=== PATIENT | male | born 1945 | race Caucasian/White ===

== ENCOUNTER 2018-10-16 20:32 | Observation (INO) | payer MEDICARE ==
[2018-10-16 21:08] LABS: #Basophils 0.1 thou/uL (0.0-0.2); #Eosinphils 0.2 thou/uL (0.0-0.7); #Lymphocytes 2.2 thou/uL (1.20-3.40); #Monocytes 0.6 thou/uL (0.11-0.59); #Neutrophils 7.6 thou/uL (1.40-6.50); %Basophils 0.6 % (0.0-1.0); %Eosinophils 1.6 % (0.0-10.0); %Lymphocytes 20.6 % (21.0-51.0); %Monocytes 5.7 % (0.0-10.0); %Neutrophils 71.5 % (42.0-75.0); Hemoglobin 17.4 g/dL (14.0-18.0); Mean Corpuscular Hemoglobin 30.8 pg (27.0-31.0); Mean Corpuscular Volume 93.4 fL (78.0-98.0); Mean Platelet Volume 8.9 fL (7.4-10.4); Platelet Count 201 thou/uL (130-400); RBC Distribution Width 13.5 % (11.5-14.5); Red Blood Cell (RBC) Count 5.65 mill/uL (4.70-6.10); White Blood Cell (WBC) Count 10.7 thou/uL (4.8-10.8)
--- NOTE | 2018-10-16 21:08 | RAD ---
PORTABLE CHEST ONE VIEW: 10/16/18 at 8:59 p.m. HISTORY: Generalized weakness. FINDINGS: Comparison made with exam of 01/31/17. There is elevation of the right hemidiaphragm. The heart size is normal. No focal areas of consolidation, pneumothoraces or pleural effusions are seen. IMPRESSION: No radiographic evidence of acute cardiopulmonary process. POS: [facility]
--- NOTE | 2018-10-16 21:35 | CT ---
CT BRAIN WITHOUT CONTRAST: 10/16/18 HISTORY: Recurrent falls with weakness and dizziness. FINDINGS: There are changes of cortical atrophy and chronic small vessel ischemic disease. The ventricular size is appropriate and the basilar cisterns patent. No evidence of acute infarct, hemorrhage, midline sh ift or abnormal extra-axial fluid collections are seen. The bony calvarium is intact. The visualized paranasal sinuses and mastoid air cells are well aerated. IMPRESSION: No CT evidence of acute intracranial process. POS: [facility]
[2018-10-16 21:50] LABS: ALT (SGPT) 15 U/L (8-55); AST (SGOT) 36 U/L (5-34); Albumin 4.4 g/dL (3.4-4.8); Alkaline Phosphatase 99 U/L (40-150); Anion Gap 20 mmol/L (10-20); BUN (Urea Nitrogen) 14 mg/dL (8.4-25.7); Bilirubin, Total 1.1 mg/dL (0.2-1.2); CK (CPK) 375 U/L (30-200); Calc. Creatinine Clearance 0 mL/min (70-130); Calcium 9.2 mg/dL (7.8-10.44); Carbon Dioxide 20 mmol/L (23-31); Chloride 100 mmol/L (98-107); Estimated GFR-MDRD 48; Globulin 4.2 g/dL (2.4-3.5); Glucose 107 mg/dL (83-110); Lipase 11 U/L (8-78); Potassium 5.8 mmol/L (3.5-5.1); Protein, Total 8.6 g/dL (5.8-8.1); Sodium 134 mmol/L (136-145)
[2018-10-16 23:53] LABS: Bilirubin Negative (Negative); Blood, Urine Negative (Negative); Clarity CLEAR (Clear); Glucose, Urine (Dipstick) Negative (Negative); Leukocyte Negative (Negative); Nitrite Negative (Negative); Protein, Urine (Dipstick) Negative (Neg-Trace); Specific Gravity, Urine 1.011 (1.002-1.036); Urobilinogen 0.2 mg/dL (0.2-1.0); pH, Urine 6.5 (5.0-9.0)
[2018-10-17] MEDS ORDERED: Acetaminophen 325 MG TAB PO PRN (02:28)
[2018-10-17 02:39] VITALS: BMI 27.1
[2018-10-17] MEDS: Sodium Chloride 0.9% 1,000 ML IV SCH ×2 (06:32→21:00)
[2018-10-17 07:49] LABS: #Eosinphils 0.1 thou/uL (0.0-0.7); #Lymphocytes 2.4 thou/uL (1.20-3.40); #Monocytes 0.5 thou/uL (0.11-0.59); #Neutrophils 5.4 thou/uL (1.40-6.50); %Basophils 0.5 % (0.0-1.0); %Eosinophils 1.7 % (0.0-10.0); %Monocytes 6.3 % (0.0-10.0); %Neutrophils 63.6 % (42.0-75.0); Hemoglobin 15.6 g/dL (14.0-18.0); Mean Corpuscular HGB CONC 32.6 g/dL (32.0-36.0); Mean Corpuscular Hemoglobin 30.2 pg (27.0-31.0); Mean Corpuscular Volume 92.5 fL (78.0-98.0); Mean Platelet Volume 8.1 fL (7.4-10.4); Platelet Count 205 thou/uL (130-400); RBC Distribution Width 13.3 % (11.5-14.5); Red Blood Cell (RBC) Count 5.15 mill/uL (4.70-6.10); White Blood Cell (WBC) Count 8.4 thou/uL (4.8-10.8)
[2018-10-17 08:10] LABS: Anion Gap 17 mmol/L (10-20); BUN (Urea Nitrogen) 12 mg/dL (8.4-25.7); Calc. Creatinine Clearance 68 mL/min (70-130); Calcium 8.5 mg/dL (7.8-10.44); Carbon Dioxide 21 mmol/L (23-31); Chloride 103 mmol/L (98-107); Estimated GFR-MDRD 58; Glucose 101 mg/dL (83-110); Potassium 4.1 mmol/L (3.5-5.1); Sodium 137 mmol/L (136-145)
--- NOTE | 2018-10-17 09:20 | HP ---
CHIEF COMPLAINT: Falls. HISTORY OF PRESENT ILLNESS: The patient is a 73-year-old male who states that he has history of some degenerative disease of his spine. The patient was also admitted here 2 years ago with episodes of falling. He also had some slight altered mental status at that time. At that time, he was thought to be suffering from urinary tract infection and some dehydration. His creatinine was elevated, that improved with hydration and the patient was discharged home. This time, the patient states he was in his usual state of health. Says he has been feeling a little bit "shaky on his feet" for several months. He reports that 3-4 months ago, he fell twice while trying to carry groceries and from the car. Both times, he bumped his head. On this occasion, the patient was at home by himself as his had gone to a conference in [place]. He reported he had been feeling constipated for several days and took some milk of magnesia the night before he got up on the morning of the October 16 and initially felt okay, but became weak and tried to get up to go to the bathroom and fell and tried to pull himself up, had some difficulties, I believes he fell again. He was incontinent in his clothes and ultimately was able to call his . She suggested an ambulance and he resisted, but apparently she called one anyway and when showed up and brought him to the hospital. The patient does not believe that he injured his head with his falls, although he is very sketchy on the details of the time around the falls. The patient does take Ambien and doxepin at night. He reports that without them, he is completely unable to sleep and he has been on these medications for a very long time. He reports that if he tries to take other medicines, he has nightmares. The patient is retired from working on railroads and he reports that he has nightmares about train wrecks all night long on other medications. He reports this is true with regular Ambien and he requires a CR in order to avoid that. I also talked to the patient's with his permission. She is also very concerned about his medications. She states that she believes that they have been causing problems for a long time including his admission 2 years ago. She reports that once the medications have a chance to wear off in the mornings and he becomes a different person for the rest of the day. She also reports that he has what appear on my estimation to the patient is generally very psychologically dependent on these medications. The patient specifically denies any numbness or weakness in his lower extremities. He does report that he may have some mild issues with recall, but denies any other cognitive issues. PAST MEDICAL HISTORY: Chronic kidney disease. The patient is unaware of the stage, but it appears to be stage III. He has severe degenerative disk disease of his lower back and apparently of the C-spine as well. He reports the last time he had imaging was in 1997, but was told at that time that it was too diffuse and that there was nothing that could be done about it. He denies having any pain in his legs, but states he has a "tired feeling" in his legs, which seems to be better in the mornings and progresses through the day. He also has a history of hypertension, hyperlipidemia, and chronic constipation. He has had endoscopy x3. PAST SURGICAL HISTORY: Radial keratotomy with some followup excimer laser procedure, which he said was not specifically LASIK. FAMILY HISTORY: Mother of breast cancer. Father with Alzheimer's. SOCIAL HISTORY: The patient does not smoke, drink, or do drugs. He is . He is full code, but only desires two rounds of ACLS protocol and then cessation. He reports his would be his surrogate decision maker. REVIEW OF SYSTEMS: The patient has some hearing loss, which he believes is work related. Has the above-mentioned chronic constipation and has the chronic issues with his lower back as stated above. All other systems were reviewed and all pertinent positives and negatives noted in the history of present illness. CURRENT MEDICATIONS: Doxepin 300 mg po q hs Atorvastatin 10 mg po q day Doxazosin 1 mg 2 po bid Lopressor 1 po bid Pilocarpine ophthalmic gtts, 1 gtt OU q day ALLERGIES: NKDA PHYSICAL EXAMINATION: VITAL SIGNS: Temperature 98.3, pulse 79, respirations 16, O2 saturation 94% on room air, BP 110/72. GENERAL APPEARANCE: Age-appropriate male, in no distress. Awake, alert, oriented, pleasant, and cooperative. HEENT: PERRL. No OP lesions. Oral mucosa may be slightly dry. NECK: Supple and symmetric. HEART: Regular rate and rhythm without murmurs, gallops, or rubs. LUNGS: Clear bilaterally. ABDOMEN: Soft, nontender, and nondistended. Positive bowel sounds. No masses. No organomegaly. EXTREMITIES: Warm, dry. No edema. SKIN: Reveals several abrasions on the left elbow and right knee. NEUROLOGICAL: The patient appears to be intact. He does not demonstrate any significant tremor and he appears to have 5/5 strength x4. LABORATORY DATA: Labs showed white count 10.7, hemoglobin 17.4, platelets 201. Sodium 134, potassium 5.8, chloride 100, CO2 of 20, BUN 14, creatinine 1.45, glucose 107, calcium 9.2, AST is 36, ALT 15, CK 375, troponin less than 0.01, albumin 4.4, lipase 11. TSH 1.54. Urinalysis negative. CT shows mild chronic changes, nothing acute. Chest x-ray is negative. IMPRESSION AND PLAN: 1. Multiple falls. My concern is the patient is having possibly some chronic lower extremity issues due to degenerative disk disease of his lumbar spine. This has not been worked up in 20 years. The patient is convinced that there is nothing to be done with benefit, however, maybe worth reassessing that, but I am also concerned that the patient may be having some effects from the Ambien and doxepin that he is taking at night, I believed to be having some hangover effect, which is why he is having some issues with recall of the events. I discussed this with the patient at length. He is fairly resistant to changing medications. This has been ongoing issue for him over at least a couple of decades and I believe he will need to follow up with his PCP. 2. Altered mental status. The patient has altered memory of the events. Again , I believe this is likely related to medications. I did speak with the patient's at length as well as the patient. It would prefer to have Neurology consult why he is here as it is more likely for him to follow up after the fact. 3. Degenerative disk disease, apparently the lumbar and cervical spine. The patient does not demonstrate any significant weakness on my exam. We will have Physical Therapy evaluate him. We will also have neurology see him. I encouraged the patient to consider repeat imaging as it has been 20 years. Also suspect he will need some peripheral nerve conduction studies to determine if there is significant compromise. 4. Chronic insomnia. Again, the patient's medications are likely contributory to his current admission. Suspect he will need to have some changes, but given his resistance and commitment to his current medications and his history of having issues with other medications, I will defer this to the patient's PCP. 5. Chronic kidney disease, appears to be stage III, stable. 6. Hyperkalemia. The patient received a liter of fluids in the emergency department. He has repeat labs pending. 7. Hypertension. Continue with the metoprolol and doxazosin. We will check orthostatic vital signs just to ensure that he may not be having some orthostasis causing some of his fall issues as well. 8. Hyperlipidemia. Continue with the atorvastatin. Job ID: [id number] MTDD
[2018-10-17] MEDS: Doxazosin Mesylate 1 MG TAB PO SCH ×2 (09:24→20:57)
[2018-10-17] MEDS: Atorvastatin Calcium 10 MG TAB PO SCH (09:24)
[2018-10-17] MEDS: Metoprolol Tartrate 25 MG TAB PO SCH ×2 (09:24→20:56)
--- NOTE | 2018-10-17 10:53 | CON ---
DATE OF CONSULTATION: 10/17/2018 CONSULTING PHYSICIAN: Hospitalist Services. IMPRESSION: 1. Chronic back pain. 2. Mild ataxia of uncertain etiology. PLAN: 1. MRI of lumbar spine. 2. B12, B6, and free T4 levels. 3. PT evaluation. HISTORY OF PRESENT ILLNESS: Mr. Persaud is a 73-year-old man, brought in by ambulance after he took a fall at home and had difficulty getting up. He actually did not want to come to the hospital, but they brought him in any way. He reports that for 25 years, he has had chronic back pain is typically worsens as the day goes on. After sleeping through the night, he is usually pain free in the morning. He denies any radicular pain or claudication. He has not noticed any numbness or tingling in extremities. Over the last few months, he notes that his balance has deteriorated somewhat. He does not report any vertigo or lightheadedness. There is no loss of bowel or bladder control reported prior to admission. He had a CT scan of the brain done in the ER, which showed some small-vessel ischemic changes. His laboratory studies were normal. He has been started on some IV fluids. PAST MEDICAL HISTORY: Hypertension and diabetes. ALLERGIES: NONE REPORTED. SOCIAL HISTORY: No tobacco or alcohol use. FAMILY HISTORY: Noncontributory. MEDICATIONS: Medication list was reviewed. REVIEW OF SYSTEMS: A 10-system review of systems is otherwise unremarkable. PHYSICAL EXAMINATION: GENERAL: He is a well-nourished elderly man, in no acute distress. VITAL SIGNS: Blood pressure 132/91, pulse 80, respirations 19, and temperature 98.5. HEENT: Pupils are equal and reactive. Conjunctivae clear. Oropharynx clear. NECK: Supple. No lymphadenopathy. EXTREMITIES: No cyanosis, clubbing, or edema. NEUROLOGIC: He was alert and cooperative. Speech is fluent and clear. Cranial nerves 2 through 12 are intact. Motor strength is 5/5 in all areas. Sensation was intact to light touch and proprioception. Reflexes 1+ and symmetric in the limbs. He could stand independently. He could raise up on his tip toes. He was mildly unstable. SUMMARY: Elderly man with chronic back pain and complaints of some increasing unsteadiness on his feet. There is nothing specific on his exam. He has good strength and intact proprioception. I do not see any evidence of normal-pressure hydrocephalus, can check for vitamin deficiencies, but more than likely he will have to just deal with this through physical therapy and a cane or a walker. Job ID: [id number]
--- NOTE | 2018-10-17 13:02 | MRI ---
MRI LUMBAR SPINE NONCONTRAST: Date: 10/17/18 HISTORY: Urgent MRI lumbar spine performed for new onset weakness and dizziness with progressive falls. FINDINGS: There is a chronic mild superior end plate/anterior wedge compression fracture of T12. This results i n mild retropulsion of bone of the superior aspect seen only on sagittal imaging which does efface th e visualized lower thoracic spinal cord, incompletely evaluated on the basis of this exam. Multilevel end plate degenerative change throughout the lumbar spine is present, resulting in multile yesenia disc osteophyte formation. There is also multilevel bilateral moderate degenerative facet hypertr ophy. Conus medullaris terminates at the L1 level. There is minimal end plate marrow edema compatible with Modic Type I degenerative signal alteration of L2-3 level. T2 signal within the partially imaged pelvis suggests prominent distention of the urinary bladder, al though is incompletely evaluated. L5-S1: No significant central canal stenosis. There is mild left and minimal right neural foraminal narrowing on the basis of facet hypertrophy and disc osteophyte. L4-5: There is moderate central canal stenosis as result of disc osteophyte and bilateral facet hype rtrophy with redundancy of ligamenta flava. Mild to moderate left and minimal right neural foraminal narrowing present. L3-4: There is mild to moderate central canal stenosis as a result of broad based disc osteophyte an d facet hypertrophy. Mild left foraminal narrowing is present. No significant right foraminal narrowi ng. L2-3: There is a right asymmetric disc osteophyte complex which results in moderate stenosis of the right subarticular zone which does crowd the traversing right L3 nerve root. There is mild narrowing of the central canal otherwise demonstrated. Mild bilateral neural foraminal narrowing is present, mo re pronounced on the right. L1-2: Right asymmetric disc osteophyte is present with crowding of the traversing right L2 nerve kishor t within the subarticular zone. Mild left and minimal right neural foraminal narrowing present. T12-L1: There is mild effacement of the right thecal sac due to disc osteophyte. No high grade ijeoma inal narrowing. Within the imaged retroperitoneum, there is a small T2 hyperintensity of the anteromedial left kidney suggestive of a small cyst, difficult to reliably discern due to motion and pulsation artifact. This could be more optimally visualized with a renal ultrasound to exclude internal complexity. IMPRESSION: 1. Incompletely assessed, incidentally imaged, central canal compromise at the low thoracic spine as discussed above, primarily due to a chronic wedge compression fracture of T12. Consider dedicated th oracic spine MR imaging to further evaluate the degree of cord compromise. 2. Multilevel degenerative change throughout the lumbar spine as outlined above. 3. Suggestion of prominent urinary bladder distention, although minimally visualized on the basis of this exam. Consider urinary bladder ultrasound, as well as clinical assessment, to exclude the possi bility of urinary retention syndrome. 4. Probable renal cyst, although complex internal component cannot be excluded. Dedicated renal ultr asound is therefore warranted. CODE T. POS: [facility]
[2018-10-17] MEDS ORDERED: ALPRAZolam 0.5 MG TAB PO PRN (16:04)
[2018-10-17] MEDS ORDERED: Doxepin HCl 25 MG CAP PO SCH (21:00)
[2018-10-18] MEDS: Atorvastatin Calcium 10 MG TAB PO SCH (09:55)
[2018-10-18] MEDS: Doxazosin Mesylate 1 MG TAB PO SCH (09:55)
[2018-10-18] MEDS: Metoprolol Tartrate 25 MG TAB PO SCH (09:55)
[2018-10-18] MEDS: Sodium Chloride 0.9% 1,000 ML IV SCH (09:58)
--- NOTE | 2018-10-18 11:09 | MRI ---
MRI THORACIC SPINE WITHOUT CONTRAST: Date: 10/18/18 HISTORY: Compression fracture with possible cord compression. COMPARISON: MRI lumbar spine prior day. FINDINGS: No retroperitoneal adenopathy. No marrow infiltrative process. There are multiple hemangiomas in the spine seen at T8 and T9. This is also seen at the level of T10. There is no acute fracture or malalignment. There is wedge compression fracture at T12, chronic, with approximately 30% anterior height loss. There is a large posterior disc osteophyte complex at T11-T1 2, along with ligamentum flavum hypertrophy, narrowing the spinal canal to approximately 6.0 mm, wit h abutment of the ventral cord. There is also asymmetric severe facet arthrosis on the left causing s evere left-sided neural foraminal narrowing. No significant right-sided neural foraminal narrowing. T here is also asymmetric left-sided facet arthropathy at T10-T11, T9-T10, and T8-T9 causing moderate n eural foraminal narrowing at all of these levels. No right-sided neural foraminal narrowing. Spinal c anal is not significantly narrowed at any other level. IMPRESSION: 1. Broad based posterior disc osteophyte complex at T11-T12 worst at the central/left paracentral robbins bforaminal and extraforaminal zone causing spinal canal narrowing to 6.0 mm, as well as severe left-s ided neural foraminal narrowing with abutment of the exiting nerve root. There is also asymmetric lef t-sided facet arthrosis at multiple levels as described, causing multilevel left-sided neural foramin al narrowing. No other levels of spinal canal narrowing are appreciated. 2. Old T12 compression fracture with approximately 20-30% anterior height loss. 3. No acute vertebral body fracture. POS: [facility]
[2018-10-18] MEDS ORDERED: Indomethacin 25 mg Capsule PO SCH ×2 (13:00→21:00)
[2018-10-18 15:48] VITALS: BP 131/82; TEMP 98.1
--- NOTE | 2018-10-19 13:32 | DIS ---
DATE OF ADMISSION: 10/17/2018 DATE OF DISCHARGE: 10/18/2018 DISCHARGE DIAGNOSES: 1. Multiple falls. 2. Altered mental status. 3. Degenerative disease of lumbar spine. 4. Chronic insomnia. 5. Chronic kidney disease stage 3. 6. Hyperkalemia. 7. Hypertension. 8. Hyperlipidemia. 9. T11-T12 spinal canal narrowing at 6 mm. 10. Severe left-sided neural foraminal narrowing at T11-T12. 11. Old T12 compression fracture with 20% to 30% anterior height loss. 12. History of benign prostatic hyperplasia. 13. Acute arthropathy, likely consistent with gout of the right great toe. HISTORY OF PRESENT ILLNESS: The patient is a 73-year-old male who presented to the emergency department. The patient had several falls at home after getting up in the morning. He talked to his , who is out of town. She called an ambulance and brought to the emergency department. The patient was somewhat sketchy on the details regarding the falls and did not have full memory of all of the events. In talking to the patient, the patient was quite concerned about what he described as chronic severe insomnia, which required him to take significant doses of Ambien CR along with doxepin each evening in order for him to sleep adequately. The patient reported that he had tried numerous other medications without success and that he was completely incapable of sleeping without those medications. The only exception being that he had used Xanax in place of the Ambien, which had been successful at one time. The patient reported that many of the medications he tried had caused him significant nightmares. The patient did not have any specific neurologic findings at the time of the exam. He did report significant degenerative disease of his spine. It was felt that the patient might have some underlying neurologic issues related to degenerative changes of the spine, exacerbated by taking significant amounts of sedating medications, having some evidence of a hangover effect. The patient was also noted to have slight hyperkalemia with potassium of 5.8. CK was only at 375, BUN 14, creatinine 1.45. HOSPITAL COURSE: The patient was placed in observation status. He was given some hydration. He was seen in consultation by Neurology who did not find any significant deficits on physical exam. The patient had initially been somewhat resistant to working up his lumbar spine as he was told by his prior physician, who was apparently no longer working in the area that there was nothing that could be done to treat his spine and he was convinced of that and therefore there was no real reason to continue to pursue any evaluation. The patient did accept a lumbar MRI after seeing Dr. Edwards. The lumbar spine did reveal some evidence of spinal narrowing at the T11-T12 area and recommended a dedicated MRI of the thoracic spine. The patient did have multiple level degenerative changes on the MRI as well. Subsequently, a T-spine MRI was ordered, however, could not be obtained until the following day. That night, the patient received low-dose Xanax along with the doxepin, which he tolerated well, slept well. The patient had the followup T-spine MRI the following day, which did reveal some degenerative and osteophytic changes causing some spinal canal narrowing to 6 mm and severe left-sided neural foraminal stenosis as well. The patient was also seen by Physical Therapy, ambulated about 280 feet with a rolling walker. He had mild antalgic gait and was felt to be adequately functional. He did recommend a rolling walker for the patient at home. I had a long discussion with the patient regarding his situation. The patient reported that he was drinking warm water in the mornings, but in the afternoon during nothing but tea and it sounds like the patient was drinking fairly large quantities of tea. We discussed the fact that was likely significantly exacerbating his insomnia problem. Also discussed at length the need for the patient to follow up with his PCP in order to discuss the medications that he is taking as I am concerned he is having some hangover effect from these sedating medications that might be contributing to his falling. Also of note, there was some concern the patient might have some bladder or some urinary retention based on his original MRI. Followup bladder scans with postvoid residual showed some modest evidence of moderate retention, but nothing requiring acute intervention. This was discussed with the patient as well. The patient reported some pain and inflammation at the base of the right great toe on the hospital and the patient reported he had one prior episode similar to that which was diagnosed as gout. PHYSICAL EXAMINATION: VITAL SIGNS: On the day of discharge, temperature 98.1, pulse 76, respirations 14, O2 saturation 95% on room air, and blood pressure 131/82. GENERAL APPEARANCE: Age-appropriate male. He is awake, alert, oriented, pleasant, and cooperative. HEART: Regular rate and rhythm without murmurs. LUNGS: Clear bilaterally. ABDOMEN: Soft, nontender. EXTREMITIES: Warm and dry with some evidence of inflammation at the base of the right great toe. DISPOSITION: The patient is discharged to home. ACTIVITY: As tolerated. DIET: He will be on a heart healthy diet. He will have the rolling walker ordered. DISCHARGE MEDICATIONS: He will be on indomethacin 25 mg b.i.d. Continue with his usual home medications. FOLLOWUP: He is to follow up with a PCP in 1 week. He is also encouraged Dr. Grace in 2 to 3 weeks regarding his spinal stenosis. I did discuss the case with Dr. Grace who is aware of the situation as well. The patient can return to the emergency department should he have any problems prior to followup. Job ID: [id number]
== END 2018-10-18 15:00 | disposition home or self-care (01) ==
LOC: ERS 20:32 → SURG A 10-17 00:11
PROVIDERS: ADMIT Hospitalist; ATTEND Hospitalist
DX: R41.82 Altered mental status, unspecified (principal); S22.089A Unspecified fracture of T11-T12 vertebra, initial encounter for closed fracture; I12.9 Hypertensive chronic kidney disease with stage 1 through stage 4 chronic kidney disease, or unspecified chronic kidney disease; E11.22 Type 2 diabetes mellitus with diabetic chronic kidney disease; N18.9 Chronic kidney disease, unspecified; M50.30 Other cervical disc degeneration, unspecified cervical region; E78.5 Hyperlipidemia, unspecified; E87.5 Hyperkalemia; K59.09 Other constipation; G47.00 Insomnia, unspecified; M51.36 Other intervertebral disc degeneration, lumbar region; Z79.899 Other long term (current) drug therapy; Z98.890 Other specified postprocedural states; W19.XXXA Unspecified fall, initial encounter
CPT/HCPCS: 70450; 71045; 72146; 72148; 80048; 81001; 82550; 82607; 83690; 84207; 84439; 84484; 85025; 87040; 87086; 93005; 94760; 96360; 96361 ×2; 97139; 99285; G0378 ×2; 36415; 51798; 80053; 84443

== ENCOUNTER 2018-11-17 10:31 | Day surgery (SDC) | payer MEDICARE ==
[2018-11-16 08:41] VITALS: BMI 28.5
--- NOTE | 2018-11-17 01:53 | HP ---
HISTORY OF PRESENT ILLNESS: Buddy Persaud is a 73-year-old male, comes for EGD for acid reflux and for a colonoscopy for colon cancer screening. The patient has had longstanding history of acid reflux which is getting increasingly worse. Complains of heartburn and also regurgitation off and on. There is no history of odynophagia or dysphagia. He comes in for EGD because of chronic acid reflux and for a colonoscopy for colon cancer screening. ALLERGIES: 1. ZOLPIDEM. 2. FENOFIBRATE. SOCIAL HISTORY: The patient is a nonsmoker. He does not drink alcohol. MEDICAL ILLNESSES: 1. Chronic acid reflux, worsening lately. 2. Hyperlipidemia. 3. Prostatic hypertrophy. 4. Diabetes. 5. Hypertension. 6. Insomnia. 7. Sleep apnea. 8. Depression. 9. Osteoarthritis. PHYSICAL EXAMINATION: VITAL SIGNS: His weight is 219 pounds, pulse is 74, blood pressure 110/60. HEENT: Conjunctivae clear. CARDIOVASCULAR SYSTEM: First and second heart sounds heard. LUNGS: Clear to auscultation. ABDOMEN: Soft. No organomegaly. No tenderness. No masses. EXTREMITIES: Reveal no edema. ADMITTING DIAGNOSIS: 1. Chronic acid reflux. 2. Colon cancer screening. PLAN: EGD and colonoscopy. Job ID: [id number]
[~2018-11-17 10:31] MED LIST: PROPOFOL 200 MG/20 ML VIAL ONE
--- NOTE | 2018-11-17 15:45 | OP ---
DATE OF PROCEDURE: 11/17/2018 OPERATIVE PROCEDURE: Colonoscopy. PREOPERATIVE DIAGNOSIS: A 73-year-old male undergoing colonoscopy for colon cancer screening. POSTOPERATIVE DIAGNOSIS: Normal colonoscopy. However, the exam was limited because of recent fecal residue intermittently in the colon. All the water was easily irrigated and washed out, the colon could not be completely cleaned out. DESCRIPTION OF PROCEDURE: The patient was placed on his left lateral position and was given sedation by Anesthesia Department. Again, a rectal exam was done. The scope was advanced into the rectum. No lesions felt on rectal exam. A [employer] video colonoscope was introduced into the rectum and advanced all the way into the cecum. The exam was somewhat difficult because of the patient did not clean out and he had fecal residue in the right and sigmoid colon all the way to the cecum. The some area of fecal material was quite thick. They are not really solid, but soft and cannot be completely washed out. There was no gross pathology seen, but however, some area could be not seen very well. The cecum, ascending colon, hepatic flexure, no pathology seen. The transverse colon, splenic flexure, descending colon, sigmoid colon, no pathology seen. Retroflexion of scope in the rectum showed no pathology. DISCHARGE PLAN: This is a 73-year-old male came for a colonoscopy for colon cancer screening. Unfortunately, the exam was limited because of retained stool. There was no gross pathology seen. DISCHARGE RECOMMENDATIONS: 1. The please advised to call me if he develops abdominal pain, hematochezia. 2. In the absence of any of above symptoms, come back to me in 2 weeks. Job ID: [id number]
== END 2018-11-17 14:35 | disposition home or self-care (01) ==
LOC: SDC 10:31
PROVIDERS: ATTEND Internal Medicine Gastroenterology
PROC: 0DJD8ZZ Inspection of Lower Intestinal Tract, Via Natural or Artificial Opening Endoscopic (ICD-10-PCS; principal; 2018-11-17)
DX: Z12.11 Encounter for screening for malignant neoplasm of colon (principal); K21.9 Gastro-esophageal reflux disease without esophagitis; E78.5 Hyperlipidemia, unspecified; N40.0 Benign prostatic hyperplasia without lower urinary tract symptoms; E11.9 Type 2 diabetes mellitus without complications; I10 Essential (primary) hypertension; G47.00 Insomnia, unspecified; G47.30 Sleep apnea, unspecified; F32.9 Major depressive disorder, single episode, unspecified; M19.90 Unspecified osteoarthritis, unspecified site; Z88.8 Allergy status to other drugs, medicaments and biological substances; Z79.899 Other long term (current) drug therapy
CPT/HCPCS: J2704

== ENCOUNTER 2022-09-03 15:45 | Inpatient (IN) | payer MEDICARE ==
[2022-09-03 16:44] LABS: #Eosinphils 0.1 thou/uL (0.0-0.7); #Lymphocytes 1.4 thou/uL (1.20-3.40); #Monocytes 0.7 thou/uL (0.11-0.59); %Basophils 0.3 % (0.0-1.0); %Eosinophils 0.3 % (0.0-10.0); %Lymphocytes 9.1 % (21.0-51.0); %Monocytes 4.6 % (0.0-10.0); %Neutrophils 85.6 % (42.0-75.0); Hemoglobin 15.8 g/dL (14.0-18.0); Mean Corpuscular HGB CONC 33.9 g/dL (32.0-36.0); Mean Corpuscular Hemoglobin 31.8 pg (27.0-31.0); Mean Corpuscular Volume 93.7 fl (78.0-98.0); Mean Platelet Volume 8.1 fL (7.4-10.4); Platelet Count 264 10x3/uL (130-400); Red Blood Cell (RBC) Count 4.98 mill/uL (4.70-6.10); White Blood Cell (WBC) Count 15.2 10x3/uL (4.8-10.8)
[2022-09-03 16:56] LABS: ALT (SGPT) 14 U/L (8-55); AST (SGOT) 32 U/L (5-34); Albumin 4.1 g/dL (3.4-4.8); Alkaline Phosphatase 95 U/L (40-110); Anion Gap 15 mmol/L (10-20); BUN (Urea Nitrogen) 20 mg/dL (8.4-25.7); Bilirubin, Total 1.6 mg/dL (0.2-1.2); CK (CPK) 535 U/L (30-200); Calc. Creatinine Clearance 0 mL/min (70-130); Carbon Dioxide 22 mmol/L (23-31); Chloride 101 mmol/L (98-107); Estimated GFR 35; Globulin 3.8 g/dL (2.4-3.5); Glucose 141 mg/dL (83-110); Lipase 14 U/L (8-78); Potassium 5.1 mmol/L (3.5-5.1); Protein, Total 7.9 g/dL (5.8-8.1); Sodium 133 mmol/L (136-145)
[2022-09-03 16:57] LABS: INR-International Normal Ratio 1.1; Prothrombin Time 14.1 sec (12.0-14.7)
[2022-09-03 16:58] LABS: PTT 36.5 sec (22.9-36.1)
[2022-09-03] MEDS ORDERED: Morphine 4 MG/ML VIAL ONE (17:48)
[2022-09-03] MEDS ORDERED: Ondansetron PF 4 MG/2 ML Vial ONE (17:48)
[2022-09-03] MEDS ORDERED: Cefepime 2 GM VIAL ONE (17:48)
[2022-09-03] MEDS ORDERED: Vancomycin 1 GM/200 ML (FROZEN) BAG ONE (19:48)
[2022-09-03 20:05] LABS: Bacteria/HPF 1+ HPF (None Seen); Bilirubin Negative (Negative); Blood, Urine Trace (Negative); Clarity Turbid (Clear); Glucose, Urine (Dipstick) 30 mg/dL (Negative); Ketone, Urine 10 mg/dL (Negative); Leukocyte 500 Leu/uL (Negative); Nitrite Negative (Negative); Protein, Urine (Dipstick) 10 mg/dL (Neg-Trace); Specific Gravity, Urine 1.018 (1.002-1.036); Squamous Epithelial 0-3 HPF (0-3); Urobilinogen Normal mg/dL (Less than 2); WBC/HPF Greater than 50 HPF (0-3); pH, Urine 6.5 (5.0-9.0)
[2022-09-03 20:31] LABS: Troponin I 0.015 ng/mL (< 0.028)
[2022-09-03] MEDS ORDERED: Acetaminophen 650 MG Suppository PR PRN (20:49)
[2022-09-03 22:56] LABS: Troponin I 0.011 ng/mL (< 0.028)
[2022-09-04 06:40] LABS: #Eosinphils 0.1 thou/uL (0.0-0.7); #Lymphocytes 2.1 thou/uL (1.20-3.40); #Monocytes 0.7 thou/uL (0.11-0.59); #Neutrophils 10.7 thou/uL (1.40-6.50); %Basophils 0.2 % (0.0-1.0); %Eosinophils 0.9 % (0.0-10.0); %Lymphocytes 15.4 % (21.0-51.0); %Monocytes 5.2 % (0.0-10.0); %Neutrophils 78.2 % (42.0-75.0); Hemoglobin 14.9 g/dL (14.0-18.0); Mean Corpuscular HGB CONC 34.1 g/dL (32.0-36.0); Mean Corpuscular Hemoglobin 32.6 pg (27.0-31.0); Mean Corpuscular Volume 95.5 fl (78.0-98.0); Platelet Count 249 10x3/uL (130-400); RBC Distribution Width 13.2 % (11.5-14.5); Red Blood Cell (RBC) Count 4.58 mill/uL (4.70-6.10); White Blood Cell (WBC) Count 13.7 10x3/uL (4.8-10.8)
[2022-09-04 06:58] LABS: Anion Gap 14 mmol/L (10-20); BUN (Urea Nitrogen) 21 mg/dL (8.4-25.7); Calc. Creatinine Clearance 35 mL/min (70-130); Calcium 8.6 mg/dL (7.8-10.44); Carbon Dioxide 20 mmol/L (23-31); Chloride 103 mmol/L (98-107); Estimated GFR 35; Glucose 129 mg/dL (83-110); Potassium 4.4 mmol/L (3.5-5.1); Sodium 133 mmol/L (136-145)
[2022-09-04] MEDS ORDERED: CEFAZOLIN 2 GM in Sodium Chloride 0.9% 100 ML IVPB SCH (07:30)
[2022-09-04] MEDS ORDERED: Fentanyl 250 MCG/5 ML VIAL ONE (11:23)
[2022-09-04] MEDS ORDERED: Famotidine/PF 20 mg/2ml Vial ONE (11:23)
[2022-09-04] MEDS ORDERED: EPINEPHrine 1 MG/ML AMP ONE (11:35)
[2022-09-04] MEDS ORDERED: Lidocaine 1% (PF) 30 ML VIAL ONE (11:35)
[2022-09-04] MEDS ORDERED: Sodium Chloride 0.9% 100 ML ONE (11:47)
[2022-09-04] MEDS ORDERED: CEFAZOLIN 2 GM VIAL ONE (11:47)
[2022-09-04] MEDS ORDERED: Ondansetron PF 4 MG/2 ML Vial ONE (12:08)
[2022-09-04] MEDS ORDERED: PHENYLEPHRINE-NS 100 MCG/ML 10 ML SYRINGE ONE (12:08)
[2022-09-04] MEDS ORDERED: Lidocaine 1% PF 5 ML VIAL ONE (12:08)
[2022-09-04] MEDS ORDERED: PROPOFOL 200 MG/20 ML VIAL ONE (12:08)
[2022-09-04] MEDS ORDERED: Rocuronium Bromide 10 MG/ML (10ML VIAL) ONE (12:08)
[2022-09-04] MEDS ORDERED: SUGAMMADEX SODIUM 200 MG/2 ML VIAL ONE (13:05)
[2022-09-04] MEDS ORDERED: Ondansetron PF 4 MG/2 ML Vial IVP PRN (13:31)
[2022-09-04] MEDS ORDERED: Acetaminophen/Codeine 30-300mg Tablet PO PRN (13:31)
[2022-09-04] MEDS ORDERED: Promethazine HCl 25 MG/ML VIAL IVPB PRN (13:50)
[2022-09-04] MEDS ORDERED: HYDROmorphone 2 MG/ML VIAL SLOW IVP PRN (13:50)
[2022-09-04] MEDS ORDERED: Labetalol HCl 100 MG/20 ML VIAL SLOW IVP PRN (16:26)
[2022-09-04] MEDS ORDERED: hydrALAZINE 20 MG/ML VIAL SLOW IVP PRN (16:26)
[2022-09-04] MEDS: Sodium Chloride 0.9% 1,000 ML IV SCH (16:51)
[2022-09-04] MEDS ORDERED: cefTRIAXone\\ROCEPHIN 1 GM in Sodium Chloride 0.9% 100 ML IVPB SCH (18:00)
[2022-09-04] MEDS: CEFAZOLIN 2 GM in Sodium Chloride 0.9% 100 ML IVPB SCH (20:32)
[2022-09-04] MEDS: Doxazosin Mesylate 1 MG TAB PO SCH (20:34)
[2022-09-04] MEDS: Atorvastatin Calcium 10 MG TAB PO SCH (20:44)
[2022-09-05] MEDS: Acetaminophen 325 MG TAB PO PRN ×2 (03:42→09:58)
[2022-09-05 04:02] LABS: #Basophils 0.1 thou/uL (0.0-0.2); #Eosinphils 0.2 thou/uL (0.0-0.7); #Lymphocytes 2.3 thou/uL (1.20-3.40); #Monocytes 0.7 thou/uL (0.11-0.59); #Neutrophils 8.2 thou/uL (1.40-6.50); %Basophils 0.6 % (0.0-1.0); %Eosinophils 1.6 % (0.0-10.0); %Lymphocytes 20.2 % (21.0-51.0); %Monocytes 6.5 % (0.0-10.0); %Neutrophils 71.1 % (42.0-75.0); Hemoglobin 14.7 g/dL (14.0-18.0); Mean Corpuscular Volume 94.3 fl (78.0-98.0); Mean Platelet Volume 8.3 fL (7.4-10.4); Platelet Count 232 10x3/uL (130-400); RBC Distribution Width 13.3 % (11.5-14.5); Red Blood Cell (RBC) Count 4.59 mill/uL (4.70-6.10); White Blood Cell (WBC) Count 11.5 10x3/uL (4.8-10.8)
[2022-09-05 04:23] LABS: Anion Gap 13 mmol/L (10-20); BUN (Urea Nitrogen) 17 mg/dL (8.4-25.7); Calc. Creatinine Clearance 39 mL/min (70-130); Calcium 8.7 mg/dL (7.8-10.44); Carbon Dioxide 22 mmol/L (23-31); Chloride 105 mmol/L (98-107); Estimated GFR 40; Glucose 163 mg/dL (83-110); Potassium 4.1 mmol/L (3.5-5.1); Sodium 136 mmol/L (136-145)
[2022-09-05] MEDS: CEFAZOLIN 2 GM in Sodium Chloride 0.9% 100 ML IVPB SCH ×3 (04:40→20:20)
[2022-09-05] MEDS: Sodium Chloride 0.9% 1,000 ML IV SCH ×2 (04:40→13:01)
[2022-09-05] MEDS ORDERED: Polyethylene Glycol 3350 17 GM Packet PO PRN (09:54)
[2022-09-05] MEDS: Doxazosin Mesylate 1 MG TAB PO SCH ×2 (09:58→20:37)
[2022-09-05] MEDS ORDERED: Magnesium Citrate 300 ML BOT PO PRN (12:46)
[2022-09-05] MEDS ORDERED: Milk Of Magnesia 30 ML UDCUP PO PRN (18:02)
[2022-09-05] MEDS: Atorvastatin Calcium 10 MG TAB PO SCH (20:26)
[2022-09-05] MEDS: Famotidine 20 MG TAB PO SCH (20:51)
[2022-09-05] MEDS ORDERED: Senokot S 8.6-50 MG TAB PO SCH (21:00)
[2022-09-06] MEDS: Sodium Chloride 0.9% 1,000 ML IV SCH ×2 (02:15→15:30)
[2022-09-06] MEDS: CEFAZOLIN 2 GM in Sodium Chloride 0.9% 100 ML IVPB SCH ×2 (03:30→12:37)
[2022-09-06 04:08] LABS: #Basophils 0.1 thou/uL (0.0-0.2); #Eosinphils 0.1 thou/uL (0.0-0.7); #Lymphocytes 2.2 thou/uL (1.20-3.40); #Monocytes 0.8 thou/uL (0.11-0.59); #Neutrophils 9.9 thou/uL (1.40-6.50); %Basophils 0.4 % (0.0-1.0); %Eosinophils 0.8 % (0.0-10.0); %Lymphocytes 17.2 % (21.0-51.0); %Monocytes 5.9 % (0.0-10.0); %Neutrophils 75.8 % (42.0-75.0); Mean Corpuscular HGB CONC 33.4 g/dL (32.0-36.0); Mean Corpuscular Hemoglobin 31.5 pg (27.0-31.0); Mean Corpuscular Volume 94.5 fl (78.0-98.0); Mean Platelet Volume 8.5 fL (7.4-10.4); Platelet Count 212 10x3/uL (130-400); RBC Distribution Width 13.1 % (11.5-14.5); Red Blood Cell (RBC) Count 4.43 mill/uL (4.70-6.10)
[2022-09-06 04:25] LABS: Anion Gap 12 mmol/L (10-20); BUN (Urea Nitrogen) 21 mg/dL (8.4-25.7); Calc. Creatinine Clearance 35 mL/min (70-130); Calcium 8.5 mg/dL (7.8-10.44); Carbon Dioxide 23 mmol/L (23-31); Chloride 103 mmol/L (98-107); Estimated GFR 39; Glucose 210 mg/dL (83-110); Potassium 4.2 mmol/L (3.5-5.1); Sodium 134 mmol/L (136-145)
[2022-09-06 04:32] VITALS: BMI 22.8
[2022-09-06] MEDS ORDERED: Dextrose 50% Abboject 50 ML SYRINGE SLOW IVP PRN (06:19)
[2022-09-06] MEDS ORDERED: Dextrose 5% in Water 1,000 ML IV PRN (06:19)
[2022-09-06] MEDS: Famotidine 20 MG TAB PO SCH (09:49)
[2022-09-06] MEDS: Doxazosin Mesylate 1 MG TAB PO SCH ×3 (09:49→22:17)
[2022-09-06] MEDS: Atorvastatin Calcium 10 MG TAB PO SCH (22:17)
[2022-09-07] MEDS: Sodium Chloride 0.9% 1,000 ML IV SCH (05:29)
[2022-09-07 06:26] LABS: #Eosinphils 0.2 thou/uL (0.0-0.7); #Lymphocytes 3.1 thou/uL (1.20-3.40); #Monocytes 0.8 thou/uL (0.11-0.59); #Neutrophils 6.8 thou/uL (1.40-6.50); %Basophils 0.4 % (0.0-1.0); %Eosinophils 1.5 % (0.0-10.0); %Lymphocytes 28.5 % (21.0-51.0); %Monocytes 7.3 % (0.0-10.0); %Neutrophils 62.3 % (42.0-75.0); Hemoglobin 13.7 g/dL (14.0-18.0); Mean Corpuscular HGB CONC 33.5 g/dL (32.0-36.0); Mean Corpuscular Hemoglobin 31.9 pg (27.0-31.0); Mean Corpuscular Volume 95.3 fl (78.0-98.0); Mean Platelet Volume 8.4 fL (7.4-10.4); Platelet Count 207 10x3/uL (130-400); RBC Distribution Width 13.2 % (11.5-14.5)
[2022-09-07 06:47] LABS: Anion Gap 10 mmol/L (10-20); BUN (Urea Nitrogen) 19 mg/dL (8.4-25.7); Calc. Creatinine Clearance 51 mL/min (70-130); Calcium 8.4 mg/dL (7.8-10.44); Carbon Dioxide 23 mmol/L (23-31); Chloride 109 mmol/L (98-107); Estimated GFR 56; Glucose 147 mg/dL (83-110); Potassium 4.1 mmol/L (3.5-5.1); Sodium 138 mmol/L (136-145)
[2022-09-07] MEDS: Metamucil PACK PO SCH (08:40)
[2022-09-07] MEDS: Doxazosin Mesylate 1 MG TAB PO SCH ×2 (08:41→20:42)
[2022-09-07] MEDS: HumaLOG 300 UNITS/3 ML VIAL SC PRN (12:25)
[2022-09-07] MEDS: Ondansetron ODT 4 MG TAB PO PRN (20:42)
[2022-09-07] MEDS: Atorvastatin Calcium 10 MG TAB PO SCH (20:42)
[2022-09-07] MEDS: Melatonin 3 MG TAB PO PRN (20:42)
[2022-09-08] MEDS: Doxazosin Mesylate 1 MG TAB PO SCH ×2 (09:49→22:07)
[2022-09-08] MEDS: Metamucil PACK PO SCH (09:49)
[2022-09-08] MEDS: Melatonin 3 MG TAB PO PRN (22:06)
[2022-09-08] MEDS: Atorvastatin Calcium 10 MG TAB PO SCH (22:06)
[2022-09-09 06:04] LABS: #Basophils 0.1 thou/uL (0.0-0.2); #Eosinphils 0.2 thou/uL (0.0-0.7); #Lymphocytes 2.6 thou/uL (1.20-3.40); #Monocytes 0.7 thou/uL (0.11-0.59); %Basophils 0.5 % (0.0-1.0); %Eosinophils 2.1 % (0.0-10.0); %Lymphocytes 24.3 % (21.0-51.0); %Monocytes 6.9 % (0.0-10.0); %Neutrophils 66.2 % (42.0-75.0); Hemoglobin 13.8 g/dL (14.0-18.0); Mean Corpuscular HGB CONC 32.9 g/dL (32.0-36.0); Mean Corpuscular Hemoglobin 31.5 pg (27.0-31.0); Mean Corpuscular Volume 95.6 fl (78.0-98.0); Mean Platelet Volume 8.3 fL (7.4-10.4); Platelet Count 238 10x3/uL (130-400); RBC Distribution Width 13.1 % (11.5-14.5); Red Blood Cell (RBC) Count 4.39 mill/uL (4.70-6.10); White Blood Cell (WBC) Count 10.6 10x3/uL (4.8-10.8)
[2022-09-09 06:25] LABS: Anion Gap 12 mmol/L (10-20); BUN (Urea Nitrogen) 20 mg/dL (8.4-25.7); Calc. Creatinine Clearance 54 mL/min (70-130); Calcium 9.1 mg/dL (7.8-10.44); Carbon Dioxide 24 mmol/L (23-31); Chloride 103 mmol/L (98-107); Estimated GFR 61; Glucose 160 mg/dL (83-110); Potassium 4.1 mmol/L (3.5-5.1); Sodium 135 mmol/L (136-145)
[2022-09-09] MEDS: Doxazosin Mesylate 1 MG TAB PO SCH ×2 (09:53→20:43)
[2022-09-09] MEDS: Metamucil PACK PO SCH (09:53)
[2022-09-09] MEDS: Ondansetron ODT 4 MG TAB PO PRN (09:58)
[2022-09-09] MEDS ORDERED: Milk Of Magnesia 30 ML UDCUP PO PRN (16:45)
[2022-09-09] MEDS ORDERED: Tamsulosin HCl 0.4 MG CAP PO SCH (19:30)
[2022-09-09] MEDS ORDERED: Pilocarpine 1% Ophth Drops 15 ML BOT EA EYE SCH ×2 (19:30→21:00)
[2022-09-09] MEDS: Atorvastatin Calcium 10 MG TAB PO SCH (20:42)
[2022-09-09] MEDS: HumaLOG 300 UNITS/3 ML VIAL SC PRN (20:44)
[2022-09-10] MEDS: Pilocarpine 1% Ophth Drops 15 ML BOT EA EYE SCH ×4 (08:41→20:26)
[2022-09-10] MEDS: Metamucil PACK PO SCH (08:42)
[2022-09-10] MEDS: Tamsulosin HCl 0.4 MG CAP PO SCH (08:42)
[2022-09-10] MEDS: Doxazosin Mesylate 1 MG TAB PO SCH (08:42)
[2022-09-10] MEDS: Atorvastatin Calcium 10 MG TAB PO SCH (20:25)
[2022-09-11 04:57] LABS: #Basophils 0.1 thou/uL (0.0-0.2); #Eosinphils 0.2 thou/uL (0.0-0.7); #Lymphocytes 2.8 thou/uL (1.20-3.40); #Monocytes 0.7 thou/uL (0.11-0.59); #Neutrophils 7.1 thou/uL (1.40-6.50); %Basophils 0.5 % (0.0-1.0); %Eosinophils 1.9 % (0.0-10.0); %Lymphocytes 25.9 % (21.0-51.0); %Monocytes 6.6 % (0.0-10.0); %Neutrophils 65.1 % (42.0-75.0); Hemoglobin 14.1 g/dL (14.0-18.0); Mean Corpuscular Hemoglobin 31.2 pg (27.0-31.0); Mean Corpuscular Volume 94.7 fl (78.0-98.0); Mean Platelet Volume 7.8 fL (7.4-10.4); Platelet Count 258 10x3/uL (130-400); RBC Distribution Width 12.9 % (11.5-14.5); Red Blood Cell (RBC) Count 4.53 mill/uL (4.70-6.10); White Blood Cell (WBC) Count 10.9 10x3/uL (4.8-10.8)
[2022-09-11 05:16] LABS: Anion Gap 12 mmol/L (10-20); BUN (Urea Nitrogen) 23 mg/dL (8.4-25.7); Calc. Creatinine Clearance 44 mL/min (70-130); Calcium 8.8 mg/dL (7.8-10.44); Carbon Dioxide 25 mmol/L (23-31); Chloride 101 mmol/L (98-107); Estimated GFR 47; Glucose 152 mg/dL (83-110); Potassium 4.5 mmol/L (3.5-5.1); Sodium 133 mmol/L (136-145)
[2022-09-11] MEDS ORDERED: Milk Of Magnesia 30 ML UDCUP PO SCH (09:31)
[2022-09-11] MEDS: Pilocarpine 1% Ophth Drops 15 ML BOT EA EYE SCH ×2 (09:42→15:38)
[2022-09-11] MEDS: Metamucil PACK PO SCH (09:44)
[2022-09-11] MEDS: Tamsulosin HCl 0.4 MG CAP PO SCH (09:44)
[2022-09-11] MEDS: HumaLOG 300 UNITS/3 ML VIAL SC PRN (12:27)
[2022-09-11 16:37] VITALS: BP 105/67; TEMP 98.2
== END 2022-09-11 19:16 | disposition home health service (06) | DRG 25 ==
LOC: ERS 15:45 → ERHOLD 18:29 → IMCU/EMU 09-04 00:40 → CCU 09-04 12:32 → SURG A 09-06 16:49
PROVIDERS: ADMIT Emergency Medicine; ATTEND Family Medicine
PROC: 00C43ZZ Extirpation of Matter from Intracranial Subdural Space, Percutaneous Approach (ICD-10-PCS; principal; 2022-09-04)
DX: S06.5X0A Traumatic subdural hemorrhage without loss of consciousness, initial encounter (principal); G93.5 Compression of brain; N17.9 Acute kidney failure, unspecified; N39.0 Urinary tract infection, site not specified; Z20.822 Contact with and (suspected) exposure to COVID-19; K21.9 Gastro-esophageal reflux disease without esophagitis; E78.5 Hyperlipidemia, unspecified; G47.00 Insomnia, unspecified; M19.90 Unspecified osteoarthritis, unspecified site; F32.A Depression, unspecified; N40.0 Benign prostatic hyperplasia without lower urinary tract symptoms; E86.0 Dehydration; G89.29 Other chronic pain; M54.9 Dorsalgia, unspecified; E11.22 Type 2 diabetes mellitus with diabetic chronic kidney disease; I12.9 Hypertensive chronic kidney disease with stage 1 through stage 4 chronic kidney disease, or unspecified chronic kidney disease; N18.9 Chronic kidney disease, unspecified; R29.6 Repeated falls; E11.65 Type 2 diabetes mellitus with hyperglycemia; K59.09 Other constipation; I95.1 Orthostatic hypotension; Z85.46 Personal history of malignant neoplasm of prostate; Z79.899 Other long term (current) drug therapy; Z98.890 Other specified postprocedural states; Z82.0 Family history of epilepsy and other diseases of the nervous system; Z91.81 History of falling
CPT/HCPCS: 36415; 36416; 70450; 71045; 80048; 80053; 81003; 81015; 82550; 83036; 83605; 83690; 84145; 84484; 85025; 85610; 85730; 87040; 87086; 93005; 94760; 96374; 96375; C1713; J0171; J0692; J1815; J2001; J2270; J2405; J2704; J3010; J3370-JW; J3490; J7050; Q0162; S0028; U0003; U0005

== ENCOUNTER 2022-10-03 13:00 | Inpatient (IN) | payer MEDICARE ==
[2022-10-03 14:15] LABS: #Eosinphils 0.3 thou/uL (0.0-0.7); #Lymphocytes 2.5 thou/uL (1.20-3.40); #Monocytes 0.8 thou/uL (0.11-0.59); #Neutrophils 13.9 thou/uL (1.40-6.50); %Basophils 0.2 % (0.0-1.0); %Eosinophils 1.8 % (0.0-10.0); %Lymphocytes 14.4 % (21.0-51.0); %Monocytes 4.6 % (0.0-10.0); Hemoglobin 12.6 g/dL (14.0-18.0); Mean Corpuscular HGB CONC 32.8 g/dL (32.0-36.0); Mean Corpuscular Hemoglobin 30.8 pg (27.0-31.0); Mean Corpuscular Volume 93.9 fl (78.0-98.0); Mean Platelet Volume 7.3 fL (7.4-10.4); Platelet Count 299 10x3/uL (130-400); RBC Distribution Width 13.4 % (11.5-14.5); Red Blood Cell (RBC) Count 4.07 mill/uL (4.70-6.10); White Blood Cell (WBC) Count 17.6 10x3/uL (4.8-10.8)
[2022-10-03 14:45] LABS: Bacteria/HPF 1+ HPF (None Seen); Bilirubin Negative (Negative); Blood, Urine 1+ (Negative); Clarity Clear (Clear); Glucose, Urine (Dipstick) Normal (Negative); Ketone, Urine Negative (Negative); Leukocyte 500 Leu/uL (Negative); Nitrite Negative (Negative); Protein, Urine (Dipstick) 20 mg/dL (Neg-Trace); RBC/HPF 0-3 HPF (0-3); Specific Gravity, Urine 1.018 (1.002-1.036); Squamous Epithelial 0-3 HPF (0-3); Urobilinogen 3 mg/dL (Less than 2); WBC/HPF Greater than 50 HPF (0-3); pH, Urine 6.5 (5.0-9.0)
[2022-10-03 14:47] LABS: ALT (SGPT) 36 U/L (8-55); AST (SGOT) 42 U/L (5-34); Albumin 3.3 g/dL (3.4-4.8); Alkaline Phosphatase 93 U/L (40-110); Anion Gap 13 mmol/L (10-20); BUN (Urea Nitrogen) 22 mg/dL (8.4-25.7); Bilirubin, Total 0.8 mg/dL (0.2-1.2); Calc. Creatinine Clearance 0 mL/min (70-130); Calcium 8.2 mg/dL (7.8-10.44); Carbon Dioxide 26 mmol/L (23-31); Chloride 102 mmol/L (98-107); Estimated GFR 41; Globulin 3.5 g/dL (2.4-3.5); Glucose 159 mg/dL (83-110); Potassium 4.3 mmol/L (3.5-5.1); Protein, Total 6.8 g/dL (5.8-8.1); Sodium 137 mmol/L (136-145)
[2022-10-03] MEDS ORDERED: cefTRIAXone\\ROCEPHIN 2 GM VIAL ONE (14:49)
[2022-10-03 15:11] LABS: SARS-CoV-2 NAA Rapid Test Not Detected (NotDetected)
[2022-10-03] MEDS ORDERED: VANCOMYCIN 2 GRAM/500 ML BAG 2 GM in Premix Bag 1 BAG IVPB SCH (16:00)
[2022-10-03] MEDS ORDERED: Dextrose 50% Abboject 50 ML SYRINGE SLOW IVP PRN (16:31)
[2022-10-03] MEDS ORDERED: Dextrose 5% in Water 1,000 ML IV PRN (16:31)
[2022-10-03] MEDS ORDERED: Acetaminophen 325 MG TAB PO PRN (16:31)
[2022-10-03] MEDS ORDERED: HumaLOG 300 UNITS/3 ML VIAL SC PRN ×2 (16:34)
[2022-10-03] MEDS ORDERED: Acetaminophen 500 MG TAB PO PRN ×2 (16:45→17:04)
[2022-10-03] MEDS: metFORMIN 500 MG TAB PO SCH (18:32)
[2022-10-03] MEDS: Lactated Ringer's 1,000 ML IV SCH (18:57)
[2022-10-03] MEDS: Senokot S 8.6-50 MG TAB PO SCH (20:46)
[2022-10-03] MEDS: Atorvastatin Calcium 40 MG TAB PO SCH (20:46)
[2022-10-03] MEDS: Zolpidem Tartrate 5 MG TAB PO SCH (20:46)
[2022-10-03] MEDS: Polyethylene Glycol 3350 17 GM Packet PO SCH (20:46)
[2022-10-03] MEDS: Doxepin HCl 25 MG CAP PO SCH (21:07)
[2022-10-04] MEDS: Lactated Ringer's 1,000 ML IV SCH (05:17)
[2022-10-04 06:41] LABS: #Eosinphils 0.3 thou/uL (0.0-0.7); #Monocytes 0.7 thou/uL (0.11-0.59); #Neutrophils 8.7 thou/uL (1.40-6.50); %Basophils 0.4 % (0.0-1.0); %Eosinophils 2.2 % (0.0-10.0); %Lymphocytes 17.3 % (21.0-51.0); %Monocytes 5.7 % (0.0-10.0); %Neutrophils 74.5 % (42.0-75.0); Hemoglobin 11.1 g/dL (14.0-18.0); Mean Corpuscular HGB CONC 33.4 g/dL (32.0-36.0); Mean Corpuscular Hemoglobin 31.5 pg (27.0-31.0); Mean Corpuscular Volume 94.2 fl (78.0-98.0); Mean Platelet Volume 7.3 fL (7.4-10.4); Platelet Count 287 10x3/uL (130-400); RBC Distribution Width 13.1 % (11.5-14.5); Red Blood Cell (RBC) Count 3.53 mill/uL (4.70-6.10); White Blood Cell (WBC) Count 11.7 10x3/uL (4.8-10.8)
[2022-10-04 07:01] LABS: Anion Gap 11 mmol/L (10-20); BUN (Urea Nitrogen) 16 mg/dL (8.4-25.7); Calc. Creatinine Clearance 55 mL/min (70-130); Calcium 8.5 mg/dL (7.8-10.44); Carbon Dioxide 26 mmol/L (23-31); Chloride 105 mmol/L (98-107); Estimated GFR 60; Glucose 112 mg/dL (83-110); Potassium 4.1 mmol/L (3.5-5.1); Sodium 138 mmol/L (136-145)
[2022-10-04] MEDS: Polyethylene Glycol 3350 17 GM Packet PO SCH ×2 (08:45→21:54)
[2022-10-04] MEDS: Tamsulosin HCl 0.4 MG CAP PO SCH (08:45)
[2022-10-04] MEDS: metFORMIN 500 MG TAB PO SCH ×2 (08:45→17:28)
[2022-10-04] MEDS: Senokot S 8.6-50 MG TAB PO SCH ×2 (08:45→21:49)
[2022-10-04] MEDS: Pilocarpine 1% Ophth Drops 15 ML BOT EA EYE SCH (11:21)
[2022-10-04] MEDS: cefTRIAXone\\ROCEPHIN 1 GM in Sodium Chloride 0.9% 100 ML IVPB SCH (15:26)
[2022-10-04] MEDS ORDERED: Polyethylene Glycol 3350 17 GM Packet PO SCH (17:09)
[2022-10-04] MEDS: Atorvastatin Calcium 40 MG TAB PO SCH (21:47)
[2022-10-04] MEDS: Zolpidem Tartrate 5 MG TAB PO SCH (21:47)
[2022-10-04] MEDS: Doxepin HCl 25 MG CAP PO SCH (21:49)
[2022-10-05 06:39] LABS: #Eosinphils 0.3 thou/uL (0.0-0.7); #Lymphocytes 2.1 thou/uL (1.20-3.40); #Monocytes 0.7 thou/uL (0.11-0.59); #Neutrophils 5.8 thou/uL (1.40-6.50); %Basophils 0.5 % (0.0-1.0); %Eosinophils 3.1 % (0.0-10.0); %Lymphocytes 23.5 % (21.0-51.0); %Monocytes 7.7 % (0.0-10.0); %Neutrophils 65.1 % (42.0-75.0); Hemoglobin 11.6 g/dL (14.0-18.0); Mean Corpuscular HGB CONC 33.3 g/dL (32.0-36.0); Mean Corpuscular Hemoglobin 31.5 pg (27.0-31.0); Mean Corpuscular Volume 94.7 fl (78.0-98.0); Mean Platelet Volume 7.4 fL (7.4-10.4); Platelet Count 316 10x3/uL (130-400); RBC Distribution Width 13.1 % (11.5-14.5)
[2022-10-05 07:00] LABS: Anion Gap 13 mmol/L (10-20); BUN (Urea Nitrogen) 21 mg/dL (8.4-25.7); Calc. Creatinine Clearance 52 mL/min (70-130); Calcium 8.6 mg/dL (7.8-10.44); Carbon Dioxide 24 mmol/L (23-31); Chloride 104 mmol/L (98-107); Estimated GFR 56; Glucose 146 mg/dL (83-110); Potassium 4.1 mmol/L (3.5-5.1); Sodium 137 mmol/L (136-145)
[2022-10-05] MEDS: metFORMIN 500 MG TAB PO SCH ×2 (09:24→17:02)
[2022-10-05] MEDS: Senokot S 8.6-50 MG TAB PO SCH ×2 (09:25→20:09)
[2022-10-05] MEDS: Pilocarpine 1% Ophth Drops 15 ML BOT EA EYE SCH (09:26)
[2022-10-05] MEDS: Tamsulosin HCl 0.4 MG CAP PO SCH (09:26)
[2022-10-05] MEDS: Polyethylene Glycol 3350 17 GM Packet PO SCH ×2 (09:28→20:05)
[2022-10-05] MEDS: cefTRIAXone\\ROCEPHIN 1 GM in Sodium Chloride 0.9% 100 ML IVPB SCH (14:12)
[2022-10-05] MEDS: Doxepin HCl 25 MG CAP PO SCH (20:04)
[2022-10-05] MEDS: Atorvastatin Calcium 40 MG TAB PO SCH (20:09)
[2022-10-06 07:15] LABS: #Eosinphils 0.4 thou/uL (0.0-0.7); #Lymphocytes 2.1 thou/uL (1.20-3.40); #Monocytes 0.7 thou/uL (0.11-0.59); #Neutrophils 8.7 thou/uL (1.40-6.50); %Basophils 0.3 % (0.0-1.0); %Eosinophils 3.2 % (0.0-10.0); %Lymphocytes 17.4 % (21.0-51.0); %Monocytes 5.6 % (0.0-10.0); %Neutrophils 73.5 % (42.0-75.0); Hemoglobin 12.3 g/dL (14.0-18.0); Mean Corpuscular HGB CONC 33.1 g/dL (32.0-36.0); Mean Corpuscular Volume 93.5 fl (78.0-98.0); Mean Platelet Volume 7.5 fL (7.4-10.4); Platelet Count 345 10x3/uL (130-400); RBC Distribution Width 13.1 % (11.5-14.5); Red Blood Cell (RBC) Count 3.96 mill/uL (4.70-6.10); White Blood Cell (WBC) Count 11.8 10x3/uL (4.8-10.8)
[2022-10-06 07:16] LABS: Anion Gap 14 mmol/L (10-20); BUN (Urea Nitrogen) 19 mg/dL (8.4-25.7); Calc. Creatinine Clearance 57 mL/min (70-130); Calcium 8.9 mg/dL (7.8-10.44); Carbon Dioxide 23 mmol/L (23-31); Chloride 102 mmol/L (98-107); Estimated GFR 62; Glucose 159 mg/dL (83-110); Potassium 4.1 mmol/L (3.5-5.1); Sodium 135 mmol/L (136-145)
[2022-10-06] MEDS: Polyethylene Glycol 3350 17 GM Packet PO SCH ×2 (08:52→21:11)
[2022-10-06] MEDS: Senokot S 8.6-50 MG TAB PO SCH ×2 (08:52→21:11)
[2022-10-06] MEDS: metFORMIN 500 MG TAB PO SCH ×2 (08:52→16:53)
[2022-10-06] MEDS: Tamsulosin HCl 0.4 MG CAP PO SCH (08:52)
[2022-10-06] MEDS: Pilocarpine 1% Ophth Drops 15 ML BOT EA EYE SCH (08:53)
[2022-10-06] MEDS ORDERED: FLU VACC QS2022-23(65YR UP)/PF 240 MCG/0.7 ML SYRINGE IM ONE (09:00)
[2022-10-06] MEDS: cefTRIAXone\\ROCEPHIN 1 GM in Sodium Chloride 0.9% 100 ML IVPB SCH (14:02)
[2022-10-06] MEDS: Atorvastatin Calcium 40 MG TAB PO SCH (21:11)
[2022-10-06] MEDS: Melatonin 3 MG TAB PO SCH (21:12)
[2022-10-06] MEDS ORDERED: hydrOXYzine 25 MG TAB PO SCH (21:45)
[2022-10-07 07:35] LABS: #Basophils 0.1 thou/uL (0.0-0.2); #Eosinphils 0.4 thou/uL (0.0-0.7); #Lymphocytes 2.6 thou/uL (1.20-3.40); #Monocytes 0.7 thou/uL (0.11-0.59); #Neutrophils 8.9 thou/uL (1.40-6.50); %Basophils 0.5 % (0.0-1.0); %Eosinophils 3.1 % (0.0-10.0); %Lymphocytes 20.3 % (21.0-51.0); %Monocytes 5.6 % (0.0-10.0); %Neutrophils 70.5 % (42.0-75.0); Hemoglobin 13.1 g/dL (14.0-18.0); Mean Corpuscular HGB CONC 32.5 g/dL (32.0-36.0); Mean Corpuscular Hemoglobin 30.3 pg (27.0-31.0); Mean Corpuscular Volume 93.2 fl (78.0-98.0); Mean Platelet Volume 7.9 fL (7.4-10.4); Platelet Count 391 10x3/uL (130-400); RBC Distribution Width 13.2 % (11.5-14.5); Red Blood Cell (RBC) Count 4.33 mill/uL (4.70-6.10); White Blood Cell (WBC) Count 12.6 10x3/uL (4.8-10.8)
[2022-10-07 07:52] LABS: Anion Gap 12 mmol/L (10-20); BUN (Urea Nitrogen) 19 mg/dL (8.4-25.7); Calc. Creatinine Clearance 55 mL/min (70-130); Calcium 9.5 mg/dL (7.8-10.44); Carbon Dioxide 24 mmol/L (23-31); Chloride 102 mmol/L (98-107); Estimated GFR 59; Glucose 146 mg/dL (83-110); Potassium 4.2 mmol/L (3.5-5.1); Sodium 134 mmol/L (136-145)
[2022-10-07] MEDS: Polyethylene Glycol 3350 17 GM Packet PO SCH ×2 (07:55→20:49)
[2022-10-07] MEDS: metFORMIN 500 MG TAB PO SCH ×2 (07:55→16:53)
[2022-10-07] MEDS: Tamsulosin HCl 0.4 MG CAP PO SCH (07:55)
[2022-10-07] MEDS: Pilocarpine 1% Ophth Drops 15 ML BOT EA EYE SCH (07:55)
[2022-10-07] MEDS: Senokot S 8.6-50 MG TAB PO SCH ×2 (07:55→20:49)
[2022-10-07] MEDS: cefTRIAXone\\ROCEPHIN 1 GM in Sodium Chloride 0.9% 100 ML IVPB SCH (13:26)
[2022-10-07] MEDS: Doxepin HCl 25 MG CAP PO SCH (20:49)
[2022-10-07] MEDS: Atorvastatin Calcium 40 MG TAB PO SCH (20:49)
[2022-10-07] MEDS: Melatonin 3 MG TAB PO SCH (22:00)
[2022-10-08 07:16] LABS: #Basophils 0.1 thou/uL (0.0-0.2); #Eosinphils 0.3 thou/uL (0.0-0.7); #Lymphocytes 2.7 thou/uL (1.20-3.40); #Neutrophils 11.8 thou/uL (1.40-6.50); %Basophils 0.3 % (0.0-1.0); %Eosinophils 1.9 % (0.0-10.0); %Lymphocytes 16.9 % (21.0-51.0); %Neutrophils 74.9 % (42.0-75.0); Hemoglobin 13.3 g/dL (14.0-18.0); Mean Corpuscular Hemoglobin 30.8 pg (27.0-31.0); Mean Corpuscular Volume 93.2 fl (78.0-98.0); Mean Platelet Volume 7.4 fL (7.4-10.4); Platelet Count 413 10x3/uL (130-400); RBC Distribution Width 13.2 % (11.5-14.5); Red Blood Cell (RBC) Count 4.33 mill/uL (4.70-6.10); White Blood Cell (WBC) Count 15.8 10x3/uL (4.8-10.8)
[2022-10-08 07:35] LABS: Anion Gap 16 mmol/L (10-20); BUN (Urea Nitrogen) 26 mg/dL (8.4-25.7); Calc. Creatinine Clearance 49 mL/min (70-130); Calcium 9.3 mg/dL (7.8-10.44); Carbon Dioxide 22 mmol/L (23-31); Chloride 99 mmol/L (98-107); Estimated GFR 51; Glucose 148 mg/dL (83-110); Potassium 4.1 mmol/L (3.5-5.1); Sodium 133 mmol/L (136-145)
[2022-10-08] MEDS: Polyethylene Glycol 3350 17 GM Packet PO SCH ×2 (07:57→20:50)
[2022-10-08] MEDS: Pilocarpine 1% Ophth Drops 15 ML BOT EA EYE SCH (07:57)
[2022-10-08] MEDS: Senokot S 8.6-50 MG TAB PO SCH ×2 (07:57→20:50)
[2022-10-08] MEDS: Tamsulosin HCl 0.4 MG CAP PO SCH (07:57)
[2022-10-08] MEDS: metFORMIN 500 MG TAB PO SCH ×2 (07:57→16:49)
[2022-10-08] MEDS: Melatonin 3 MG TAB PO SCH (20:49)
[2022-10-08] MEDS: Atorvastatin Calcium 40 MG TAB PO SCH (20:49)
[2022-10-08] MEDS: Doxepin HCl 25 MG CAP PO SCH (20:51)
[2022-10-08] MEDS ORDERED: Mineral Oil ENEMA PR SCH (22:00)
[2022-10-09] MEDS ORDERED: Ondansetron PF 4 MG/2 ML Vial IVP PRN (02:55)
[2022-10-09 07:12] LABS: Hemoglobin 14.8 g/dL (14.0-18.0); Mean Corpuscular HGB CONC 33.9 g/dL (32.0-36.0); Mean Corpuscular Hemoglobin 31.3 pg (27.0-31.0); Mean Corpuscular Volume 92.5 fl (78.0-98.0); Mean Platelet Volume 8.2 fL (7.4-10.4); Platelet Count 423 10x3/uL (130-400); RBC Distribution Width 13.3 % (11.5-14.5); Red Blood Cell (RBC) Count 4.72 mill/uL (4.70-6.10); White Blood Cell (WBC) Count 28.3 10x3/uL (4.8-10.8)
[2022-10-09 07:16] LABS: Anion Gap 21 mmol/L (10-20); BUN (Urea Nitrogen) 33 mg/dL (8.4-25.7); Calc. Creatinine Clearance 45 mL/min (70-130); Carbon Dioxide 18 mmol/L (23-31); Chloride 99 mmol/L (98-107); Estimated GFR 47; Glucose 203 mg/dL (83-110); Potassium 4.8 mmol/L (3.5-5.1); Sodium 133 mmol/L (136-145)
[2022-10-09 07:55] LABS: Band 7 % (5-11); Lymphocytes 7 % (21-51); MDiff Complete? YES; Monocytes 4 % (0-10); Neutrophil 82 % (42-75); Platelet Morphology Comment Appears Increased; RBC Morphology Normal
[2022-10-09] MEDS: Tamsulosin HCl 0.4 MG CAP PO SCH (08:33)
[2022-10-09] MEDS: Pilocarpine 1% Ophth Drops 15 ML BOT EA EYE SCH (08:33)
[2022-10-09] MEDS: metFORMIN 500 MG TAB PO SCH ×2 (08:33→17:41)
[2022-10-09] MEDS: Senokot S 8.6-50 MG TAB PO SCH (08:33)
[2022-10-09] MEDS: Polyethylene Glycol 3350 17 GM Packet PO SCH (08:33)
[2022-10-09] MEDS ORDERED: Simethicone Chewable 80 MG TAB PO PRN (10:28)
[2022-10-09] MEDS: Lactated Ringer's 500 ML IV SCH ×2 (12:44→17:20)
[2022-10-09] MEDS ORDERED: Iopamidol-370 76% 500 ML 1 ML ONE (14:48)
[2022-10-09] MEDS ORDERED: Morphine 4 MG/ML VIAL SLOW IVP SCH (15:45)
[2022-10-09] MEDS ORDERED: Lactated Ringer's 1,000 ML IV SCH ×3 (16:30→17:15)
[2022-10-09 16:51] LABS: Hemoglobin 14.7 g/dL (14.0-18.0); Mean Corpuscular HGB CONC 33.4 g/dL (32.0-36.0); Mean Corpuscular Hemoglobin 30.9 pg (27.0-31.0); Mean Corpuscular Volume 92.6 fl (78.0-98.0); Mean Platelet Volume 8.3 fL (7.4-10.4); Platelet Count 441 10x3/uL (130-400); RBC Distribution Width 13.4 % (11.5-14.5); Red Blood Cell (RBC) Count 4.76 mill/uL (4.70-6.10); White Blood Cell (WBC) Count 27.8 10x3/uL (4.8-10.8)
[2022-10-09 17:10] LABS: Lymphocytes 7 % (21-51); MDiff Complete? YES; Monocytes 3 % (0-10); Neutrophil 87 % (42-75); Platelet Morphology Comment Appears Increased; Polychromasia SLIGHT = 2-3 cells (100X) (0-2/hpf); Reactive Lymphocytes 3 % (0-10)
[2022-10-09 17:12] LABS: Lactic Acid 5.6 mmol/L (0.5-2.2)
[2022-10-09 17:14] LABS: ALT (SGPT) 25 U/L (8-55); AST (SGOT) 22 U/L (5-34); Albumin 3.9 g/dL (3.4-4.8); Alkaline Phosphatase 108 U/L (40-110); Anion Gap 20 mmol/L (10-20); BUN (Urea Nitrogen) 38 mg/dL (8.4-25.7); Bilirubin, Total 0.7 mg/dL (0.2-1.2); Calc. Creatinine Clearance 38 mL/min (70-130); Calcium 9.4 mg/dL (7.8-10.44); Carbon Dioxide 16 mmol/L (23-31); Chloride 98 mmol/L (98-107); Estimated GFR 38; Globulin 4.6 g/dL (2.4-3.5); Glucose 247 mg/dL (83-110); Potassium 4.8 mmol/L (3.5-5.1); Protein, Total 8.5 g/dL (5.8-8.1); Sodium 129 mmol/L (136-145)
[2022-10-09] MEDS: Sodium Chloride 0.9% 1,000 ML IV SCH (20:23)
[2022-10-09 20:35] LABS: Lactic Acid 2.4 mmol/L (0.5-2.2)
[2022-10-10] MEDS: Sodium Chloride 0.9% 1,000 ML IV SCH ×4 (00:23→20:43)
[2022-10-10 06:39] LABS: #Basophils 0.1 thou/uL (0.0-0.2); #Eosinphils 0.3 thou/uL (0.0-0.7); #Lymphocytes 2.9 thou/uL (1.20-3.40); #Monocytes 0.9 thou/uL (0.11-0.59); #Neutrophils 9.9 thou/uL (1.40-6.50); %Basophils 0.4 % (0.0-1.0); %Eosinophils 2.3 % (0.0-10.0); %Lymphocytes 20.5 % (21.0-51.0); %Monocytes 6.1 % (0.0-10.0); %Neutrophils 70.6 % (42.0-75.0); Hemoglobin 12.6 g/dL (14.0-18.0); Mean Corpuscular HGB CONC 32.5 g/dL (32.0-36.0); Mean Corpuscular Volume 92.3 fl (78.0-98.0); Mean Platelet Volume 7.8 fL (7.4-10.4); Platelet Count 415 10x3/uL (130-400); RBC Distribution Width 13.4 % (11.5-14.5); Red Blood Cell (RBC) Count 4.21 mill/uL (4.70-6.10)
[2022-10-10 07:00] LABS: ALT (SGPT) 18 U/L (8-55); AST (SGOT) 18 U/L (5-34); Albumin 3.2 g/dL (3.4-4.8); Alkaline Phosphatase 84 U/L (40-110); Anion Gap 13 mmol/L (10-20); BUN (Urea Nitrogen) 29 mg/dL (8.4-25.7); Bilirubin, Total 0.7 mg/dL (0.2-1.2); Calc. Creatinine Clearance 54 mL/min (70-130); Calcium 8.5 mg/dL (7.8-10.44); Carbon Dioxide 24 mmol/L (23-31); Chloride 102 mmol/L (98-107); Estimated GFR 58; Globulin 3.8 g/dL (2.4-3.5); Glucose 151 mg/dL (83-110); Magnesium 1.8 mg/dL (1.6-2.6); Potassium 4.2 mmol/L (3.5-5.1); Sodium 135 mmol/L (136-145)
[2022-10-10] MEDS: Pilocarpine 1% Ophth Drops 15 ML BOT EA EYE SCH (08:48)
[2022-10-10] MEDS: Tamsulosin HCl 0.4 MG CAP PO SCH (08:51)
[2022-10-10] MEDS ORDERED: Pantoprazole 40 MG VIAL IVP SCH (09:00)
[2022-10-10] MEDS ORDERED: Ropivacaine 0.5% HCl/PF (150 MG/30 ML VIAL) ONE (11:15)
[2022-10-10] MEDS ORDERED: Fentanyl 100 MCG/2 ML VIAL ONE (11:15)
[2022-10-10] MEDS ORDERED: Midazolam HCl 2 mg/2 ml Vial ONE (11:15)
[2022-10-10] MEDS ORDERED: PHENYLEPHRINE-NS 100 MCG/ML 10 ML SYRINGE ONE ×2 (13:00→13:37)
[2022-10-10] MEDS ORDERED: Rocuronium Bromide 10 MG/ML (10ML VIAL) ONE (13:00)
[2022-10-10] MEDS ORDERED: Succinylcholine Chloride 100 MG/5 ML SYRINGE FS ONE (13:00)
[2022-10-10] MEDS ORDERED: PROPOFOL 200 MG/20 ML VIAL ONE (13:00)
[2022-10-10] MEDS ORDERED: Lidocaine 1% PF 5 ML VIAL ONE (13:00)
[2022-10-10] MEDS ORDERED: Fentanyl 250 MCG/5 ML VIAL ONE (13:26)
[2022-10-10] MEDS ORDERED: Piperacillin/Tazobactam 3.375 GM VIAL ONE (13:29)
[2022-10-10] MEDS ORDERED: Sodium Chloride 0.9% 100 ML ONE (13:29)
[2022-10-10] MEDS ORDERED: SUGAMMADEX SODIUM 200 MG/2 ML VIAL ONE (14:21)
[2022-10-10] MEDS ORDERED: fentaNYL PF 100 MCG/2 ML SYRINGE ONE (14:54)
[2022-10-10] MEDS ORDERED: Morphine 4 MG/ML VIAL ONE (15:08)
[2022-10-10] MEDS ORDERED: Morphine 2 MG/ML VIAL ONE (15:37)
[2022-10-10] MEDS ORDERED: Non-Formulary Medication 1 EACH PO PRN (15:49)
[2022-10-10] MEDS ORDERED: Ondansetron HCl/PF 4 MG/2 ML Vial IVP PRN (16:00)
[2022-10-10] MEDS ORDERED: Morphine Sulfate 2 MG/ML SYRINGE SLOW IVP PRN (16:00)
[2022-10-10] MEDS ORDERED: Promethazine HCl 25 MG/ML VIAL IM/IV PRN (16:00)
[2022-10-10] MEDS ORDERED: PACU-Morphine 4MG/ML VIAL SLOW IVP PRN (16:00)
[2022-10-10] MEDS: Methylcellulose 500 MG TAB PO SCH (16:20)
[2022-10-10] MEDS ORDERED: Morphine 2 MG/ML VIAL SLOW IVP PRN (16:55)
[2022-10-10] MEDS ORDERED: Acetaminophen 500 MG TAB PO PRN (16:57)
[2022-10-10] MEDS ORDERED: Acetaminophen 500 MG TAB PO SCH (17:00)
[2022-10-10] MEDS: Doxepin HCl 25 MG CAP PO SCH (20:45)
[2022-10-10] MEDS: traMADol HCl 50 MG TAB PO PRN (20:47)
[2022-10-11] MEDS: Morphine 4 MG/ML VIAL SLOW IVP PRN ×3 (00:28→06:13)
[2022-10-11] MEDS ORDERED: Zolpidem Tartrate 5 MG TAB PO PRN (01:35)
[2022-10-11] MEDS: Sodium Chloride 0.9% 1,000 ML IV SCH ×2 (02:22→06:13)
[2022-10-11 06:28] LABS: #Eosinphils 0.2 thou/uL (0.0-0.7); #Lymphocytes 2.5 thou/uL (1.20-3.40); #Monocytes 0.7 thou/uL (0.11-0.59); #Neutrophils 8.1 thou/uL (1.40-6.50); %Basophils 0.3 % (0.0-1.0); %Eosinophils 1.5 % (0.0-10.0); %Lymphocytes 21.5 % (21.0-51.0); %Monocytes 6.1 % (0.0-10.0); %Neutrophils 70.6 % (42.0-75.0); Hemoglobin 13.2 g/dL (14.0-18.0); Mean Corpuscular HGB CONC 32.3 g/dL (32.0-36.0); Mean Corpuscular Hemoglobin 30.7 pg (27.0-31.0); Platelet Count 342 10x3/uL (130-400); RBC Distribution Width 13.5 % (11.5-14.5); Red Blood Cell (RBC) Count 4.31 mill/uL (4.70-6.10); White Blood Cell (WBC) Count 11.5 10x3/uL (4.8-10.8)
[2022-10-11 07:16] LABS: ALT (SGPT) 12 U/L (8-55); AST (SGOT) 16 U/L (5-34); Albumin 3.2 g/dL (3.4-4.8); Alkaline Phosphatase 77 U/L (40-110); Anion Gap 12 mmol/L (10-20); BUN (Urea Nitrogen) 17 mg/dL (8.4-25.7); Bilirubin, Total 0.7 mg/dL (0.2-1.2); Calc. Creatinine Clearance 60 mL/min (70-130); Carbon Dioxide 21 mmol/L (23-31); Chloride 104 mmol/L (98-107); Estimated GFR 65; Globulin 3.2 g/dL (2.4-3.5); Glucose 162 mg/dL (83-110); Magnesium 1.8 mg/dL (1.6-2.6); Potassium 4.2 mmol/L (3.5-5.1); Protein, Total 6.4 g/dL (5.8-8.1); Sodium 133 mmol/L (136-145)
[2022-10-11] MEDS ORDERED: Ipratropium/Albuterol 3 ML NEB NEB PRN (09:58)
[2022-10-11] MEDS: Tamsulosin HCl 0.4 MG CAP PO SCH (10:37)
[2022-10-11] MEDS: Doxepin HCl 25 MG CAP PO SCH ×2 (10:38→21:28)
[2022-10-11] MEDS: Pilocarpine 1% Ophth Drops 15 ML BOT EA EYE SCH (10:38)
[2022-10-11] MEDS ORDERED: Magnesium 2 GM/50 ML(in water) 2 GM in Premix Bag 1 BAG IVPB SCH (11:30)
[2022-10-11] MEDS: Ipratropium/Albuterol 3 ML NEB NEB SCH ×2 (14:07→19:53)
[2022-10-11] MEDS: Methylcellulose 500 MG TAB PO SCH (17:01)
[2022-10-11] MEDS: traMADol HCl 50 MG TAB PO PRN (18:45)
[2022-10-12] MEDS: Morphine 4 MG/ML VIAL SLOW IVP PRN (00:01)
[2022-10-12] MEDS: traMADol HCl 50 MG TAB PO PRN ×2 (03:48→18:09)
[2022-10-12] MEDS ORDERED: Benzonatate 100 MG CAP PO PRN (03:56)
[2022-10-12 06:36] LABS: #Basophils 0.1 thou/uL (0.0-0.2); #Eosinphils 0.2 thou/uL (0.0-0.7); #Lymphocytes 2.3 thou/uL (1.20-3.40); #Monocytes 0.7 thou/uL (0.11-0.59); #Neutrophils 8.6 thou/uL (1.40-6.50); %Basophils 0.4 % (0.0-1.0); %Eosinophils 1.9 % (0.0-10.0); %Lymphocytes 19.5 % (21.0-51.0); %Monocytes 5.8 % (0.0-10.0); %Neutrophils 72.4 % (42.0-75.0); Hemoglobin 12.3 g/dL (14.0-18.0); Mean Corpuscular HGB CONC 33.1 g/dL (32.0-36.0); Mean Corpuscular Hemoglobin 31.1 pg (27.0-31.0); Platelet Count 332 10x3/uL (130-400); RBC Distribution Width 13.4 % (11.5-14.5); Red Blood Cell (RBC) Count 3.95 mill/uL (4.70-6.10); White Blood Cell (WBC) Count 11.9 10x3/uL (4.8-10.8)
[2022-10-12 06:56] LABS: Anion Gap 14 mmol/L (10-20); BUN (Urea Nitrogen) 11 mg/dL (8.4-25.7); Calc. Creatinine Clearance 59 mL/min (70-130); Calcium 8.5 mg/dL (7.8-10.44); Carbon Dioxide 25 mmol/L (23-31); Chloride 100 mmol/L (98-107); Estimated GFR 64; Glucose 140 mg/dL (83-110); Phosphorus 3.9 mg/dL (2.3-4.7); Potassium 4.3 mmol/L (3.5-5.1); Sodium 135 mmol/L (136-145)
[2022-10-12] MEDS: Ipratropium/Albuterol 3 ML NEB NEB SCH ×3 (07:50→19:06)
[2022-10-12] MEDS: Pilocarpine 1% Ophth Drops 15 ML BOT EA EYE SCH (09:33)
[2022-10-12] MEDS: Doxepin HCl 25 MG CAP PO SCH ×2 (09:33→22:04)
[2022-10-12] MEDS: Tamsulosin HCl 0.4 MG CAP PO SCH (09:33)
[2022-10-12] MEDS: Methylcellulose 500 MG TAB PO SCH (15:37)
[2022-10-13] MEDS: traMADol HCl 50 MG TAB PO PRN (05:30)
[2022-10-13 06:00] LABS: #Eosinphils 0.3 thou/uL (0.0-0.7); #Lymphocytes 2.1 thou/uL (1.20-3.40); #Monocytes 0.5 thou/uL (0.11-0.59); #Neutrophils 9.2 thou/uL (1.40-6.50); %Basophils 0.3 % (0.0-1.0); %Eosinophils 2.6 % (0.0-10.0); %Lymphocytes 17.5 % (21.0-51.0); %Neutrophils 75.6 % (42.0-75.0); Hemoglobin 12.9 g/dL (14.0-18.0); Mean Corpuscular HGB CONC 33.3 g/dL (32.0-36.0); Mean Corpuscular Volume 93.1 fl (78.0-98.0); Mean Platelet Volume 8.1 fL (7.4-10.4); Platelet Count 364 10x3/uL (130-400); RBC Distribution Width 13.3 % (11.5-14.5); Red Blood Cell (RBC) Count 4.17 mill/uL (4.70-6.10); White Blood Cell (WBC) Count 12.1 10x3/uL (4.8-10.8)
[2022-10-13 06:32] LABS: Anion Gap 14 mmol/L (10-20); BUN (Urea Nitrogen) 12 mg/dL (8.4-25.7); Calc. Creatinine Clearance 64 mL/min (70-130); Calcium 9.3 mg/dL (7.8-10.44); Carbon Dioxide 26 mmol/L (23-31); Chloride 99 mmol/L (98-107); Estimated GFR 70; Glucose 152 mg/dL (83-110); Magnesium 1.8 mg/dL (1.6-2.6); Phosphorus 3.7 mg/dL (2.3-4.7); Potassium 4.1 mmol/L (3.5-5.1); Sodium 135 mmol/L (136-145)
[2022-10-13 08:14] VITALS: BP 125/76; TEMP 99.1
[2022-10-13] MEDS: Pilocarpine 1% Ophth Drops 15 ML BOT EA EYE SCH (08:45)
[2022-10-13] MEDS: Doxepin HCl 25 MG CAP PO SCH (08:46)
[2022-10-13] MEDS: Tamsulosin HCl 0.4 MG CAP PO SCH (08:46)
[2022-10-13] MEDS: Ipratropium/Albuterol 3 ML NEB NEB SCH (10:43)
[2022-10-13] MEDS: Methylcellulose 500 MG TAB PO SCH (15:03)
== END 2022-10-13 16:18 | DRG 981 ==
LOC: ERS 13:00 → T4-B 15:47 → OBSVTOIN 10-06 15:14
PROVIDERS: ADMIT Student in an Organized Health Care Education/Training Program; ATTEND Student in an Organized Health Care Education/Training Program
PROC: 0D980ZZ Drainage of Small Intestine, Open Approach (ICD-10-PCS; principal; 2022-10-10)
PROC: 3E0M05Z Introduction of Adhesion Barrier into Peritoneal Cavity, Open Approach (ICD-10-PCS; 2022-10-10)
DX: T83.511A Infection and inflammatory reaction due to indwelling urethral catheter, initial encounter (principal); A41.9 Sepsis, unspecified organism; N17.9 Acute kidney failure, unspecified; K56.609 Unspecified intestinal obstruction, unspecified as to partial versus complete obstruction; J98.11 Atelectasis; E87.20 Acidosis, unspecified; I12.9 Hypertensive chronic kidney disease with stage 1 through stage 4 chronic kidney disease, or unspecified chronic kidney disease; N39.0 Urinary tract infection, site not specified; N18.31 Chronic kidney disease, stage 3a; E78.5 Hyperlipidemia, unspecified; K21.9 Gastro-esophageal reflux disease without esophagitis; N40.1 Benign prostatic hyperplasia with lower urinary tract symptoms; R33.8 Other retention of urine; F32.A Depression, unspecified; E11.22 Type 2 diabetes mellitus with diabetic chronic kidney disease; C61 Malignant neoplasm of prostate; R53.81 Other malaise; G47.30 Sleep apnea, unspecified; G47.00 Insomnia, unspecified; M51.36 Other intervertebral disc degeneration, lumbar region; Z20.822 Contact with and (suspected) exposure to COVID-19; E86.0 Dehydration; R53.1 Weakness; M51.24 Other intervertebral disc displacement, thoracic region; K59.09 Other constipation; M48.04 Spinal stenosis, thoracic region; K46.9 Unspecified abdominal hernia without obstruction or gangrene; Z98.890 Other specified postprocedural states; Z79.899 Other long term (current) drug therapy; Z79.84 Long term (current) use of oral hypoglycemic drugs; Z83.3 Family history of diabetes mellitus
CPT/HCPCS: 36415; 36416; 51702; 70450; 71045; 72125; 72128; 72131; 74018; 74019; 74177; 80048; 80053; 81003; 81015; 83605; 83690; 83735; 84100; 84145; 84484; 85025; 87077; 87086; 87186; 87811; 93005; 94640; 96365; 96367; 96374; 96375; 96376; C1776; C9113; G0378; J0696; J1650; J1815; J2250; J2270; J2272; J2543; J2704; J2795; J3010; J3370; J3475; J3490; J7050; J7120; J7620; Q9967

== ENCOUNTER 2023-04-10 00:38 | Inpatient (IN) | payer MEDICARE ==
[2023-04-10 01:27] LABS: Bacteria/HPF 4+ HPF (None Seen); CAUTI Indications for Culture Dysuria,urgency,freq; RBC/HPF 21-50 HPF (0-3); Squamous Epithelial None Seen HPF (0-3); WBC/HPF Greater than 50 HPF (0-3)
[2023-04-10] MEDS ORDERED: cefTRIAXone (ROCEPHIN) 1 GM VIAL ONE (01:28)
[2023-04-10 01:35] LABS: Bilirubin Negative (Negative); Blood, Urine Large (Negative); Glucose, Urine (Dipstick) Negative (Negative); Ketone, Urine Trace mg/dL (Negative); Leukocyte Moderate (Negative); Nitrite Positive (Negative); Protein, Urine (Dipstick) 100 mg/dL (Neg-Trace); Urobilinogen 0.2 mg/dL (Less than 2); pH, Urine 7.5 (5.0-9.0)
[2023-04-10 01:36] LABS: Clarity Turbid (Clear)
[2023-04-10 01:37] LABS: Urine Culture Reflex Yes Yes
[2023-04-10 01:43] LABS: #Basophils 0.1 thou/uL (0.0-0.2); #Eosinphils 0.1 thou/uL (0.0-0.7); #Monocytes 0.6 thou/uL (0.11-0.59); #Neutrophils 8.9 thou/uL (1.40-6.50); %Basophils 0.5 % (0.0-1.0); %Eosinophils 0.5 % (0.0-10.0); %Lymphocytes 12.8 % (21.0-51.0); %Neutrophils 80.8 % (42.0-75.0); Hematocrit 44.3 % (42.0-52.0); Hemoglobin 14.2 g/dL (14.0-18.0); Mean Corpuscular HGB CONC 32.1 g/dL (32.0-36.0); Mean Corpuscular Hemoglobin 28.3 pg (27.0-31.0); Mean Corpuscular Volume 88.4 fl (78.0-98.0); Mean Platelet Volume 10.3 fL (7.4-10.4); Platelet Count 245 10x3/uL (130-400); RBC Distribution Width 16.2 % (11.5-14.5); Red Blood Cell (RBC) Count 5.01 mill/uL (4.70-6.10); White Blood Cell (WBC) Count 11.1 10x3/uL (4.8-10.8)
[2023-04-10 02:05] LABS: ALT (SGPT) 7 U/L (8-55); AST (SGOT) 18 U/L (5-34); Albumin 3.4 g/dL (3.4-4.8); Alkaline Phosphatase 145 U/L (40-110); Anion Gap 15 mmol/L (10-20); BUN (Urea Nitrogen) 16 mg/dL (8.4-25.7); Bilirubin, Total 0.9 mg/dL (0.2-1.2); Calc. Creatinine Clearance 0 mL/min (70-130); Calcium 8.9 mg/dL (7.8-10.44); Carbon Dioxide 18 mmol/L (23-31); Chloride 106 mmol/L (98-107); Estimated GFR 53; Globulin 4.3 g/dL (2.4-3.5); Glucose 213 mg/dL (83-110); Potassium 4.1 mmol/L (3.5-5.1); Protein, Total 7.7 g/dL (5.8-8.1); Sodium 135 mmol/L (136-145)
[2023-04-10] MEDS ORDERED: Vancomycin 1 GM/200 ML (FROZEN) BAG ONE (02:38)
[2023-04-10] MEDS ORDERED: Sodium Chloride 0.9% 1,000 ML IV SCH ×2 (03:00→05:00)
[2023-04-10] MEDS ORDERED: Ondansetron PF 4 MG/2 ML Vial IVP PRN (03:00)
[2023-04-10] MEDS ORDERED: Ondansetron ODT 4 MG TAB SL PRN (03:00)
[2023-04-10] MEDS ORDERED: Acetaminophen 325 MG TAB PO PRN (04:10)
[2023-04-10] MEDS ORDERED: Acetaminophen 650 MG Suppository PR PRN (04:10)
[2023-04-10] MEDS ORDERED: Glucagon 1 MG/ML KIT IM PRN (04:12)
[2023-04-10] MEDS ORDERED: Dextrose 50% Abboject 50 ML SYRINGE SLOW IVP PRN (04:12)
[2023-04-10] MEDS ORDERED: HumaLOG 300 UNITS/3 ML VIAL SC PRN ×2 (04:12)
[2023-04-10] MEDS ORDERED: Dextrose 5% in Water 1,000 ML IV PRN (04:12)
[2023-04-10] MEDS ORDERED: Vancomycin HCl 500 MG in Sodium Chloride 0.9% 100 ML IVPB SCH (05:00)
[2023-04-10] MEDS ORDERED: Cefepime 2 GM in Sodium Chloride 0.9% 100 ML IVPB SCH (09:00)
[2023-04-10] MEDS ORDERED: Famotidine/PF 20 mg/2ml Vial SLOW IVP SCH (09:00)
[2023-04-10] MEDS ORDERED: Vancomycin 1 GM in Premix Bag 1 BAG IVPB SCH (10:00)
[2023-04-10] MEDS ORDERED: Vancomycin 1.5 GRAM/300 ML BAG 1.5 GM in Premix Bag 1 BAG IVPB SCH (14:00)
[2023-04-10] MEDS: Cefepime 1 GM in Sodium Chloride 0.9% 100 ML IVPB SCH (20:19)
[2023-04-10] MEDS ORDERED: Melatonin 3 MG TAB PO PRN (21:11)
[2023-04-11] MEDS: Zolpidem Tartrate 5 MG TAB PO PRN ×2 (01:47→20:51)
[2023-04-11] MEDS ORDERED: Vancomycin 1 GM in Premix Bag 1 BAG IVPB SCH (03:00)
[2023-04-11 07:39] LABS: #Basophils 0.1 thou/uL (0.0-0.2); #Eosinphils 0.2 thou/uL (0.0-0.7); #Monocytes 0.5 thou/uL (0.11-0.59); #Neutrophils 5.5 thou/uL (1.40-6.50); %Basophils 0.7 % (0.0-1.0); %Eosinophils 2.6 % (0.0-10.0); %Monocytes 5.4 % (0.0-10.0); %Neutrophils 65.9 % (42.0-75.0); Hematocrit 46.3 % (42.0-52.0); Hemoglobin 14.5 g/dL (14.0-18.0); Mean Corpuscular HGB CONC 31.3 g/dL (32.0-36.0); Mean Corpuscular Hemoglobin 27.9 pg (27.0-31.0); Mean Corpuscular Volume 89.2 fl (78.0-98.0); Mean Platelet Volume 10.3 fL (7.4-10.4); Platelet Count 267 10x3/uL (130-400); Red Blood Cell (RBC) Count 5.19 mill/uL (4.70-6.10); White Blood Cell (WBC) Count 8.4 10x3/uL (4.8-10.8)
[2023-04-11 07:53] LABS: Hemoglobin A1c 6.5 % (4.0-6.0)
[2023-04-11 08:00] LABS: Anion Gap 12 mmol/L (10-20); BUN (Urea Nitrogen) 13 mg/dL (8.4-25.7); Calc. Creatinine Clearance 38 mL/min (70-130); Calcium 9.1 mg/dL (7.8-10.44); Carbon Dioxide 25 mmol/L (23-31); Chloride 107 mmol/L (98-107); Estimated GFR 46; Glucose 120 mg/dL (83-110); Magnesium 1.9 mg/dL (1.6-2.6); Potassium 4.4 mmol/L (3.5-5.1); Sodium 140 mmol/L (136-145)
[2023-04-11] MEDS: Famotidine 20 MG TAB PO SCH (08:52)
[2023-04-11] MEDS: Cefepime 1 GM in Sodium Chloride 0.9% 100 ML IVPB SCH ×2 (08:52→20:52)
[2023-04-11] MEDS ORDERED: Famotidine/PF 20 mg/2ml Vial SLOW IVP SCH (09:00)
[2023-04-11] MEDS ORDERED: Pilocarpine 1% Ophth Drops 15 ML BOT EA EYE SCH (11:00)
[2023-04-11] MEDS ORDERED: Tamsulosin HCl 0.4 MG CAP PO SCH (11:00)
[2023-04-11] MEDS ORDERED: Bisacodyl 10 MG SUPP PR SCH (17:15)
[2023-04-11] MEDS: Atorvastatin Calcium 40 MG TAB PO SCH (20:50)
[2023-04-11] MEDS ORDERED: DOXEPIN HCL 150 MG PO SCH (21:00)
[2023-04-12 06:58] LABS: Anion Gap 12 mmol/L (10-20); BUN (Urea Nitrogen) 13 mg/dL (8.4-25.7); Calc. Creatinine Clearance 44 mL/min (70-130); Carbon Dioxide 23 mmol/L (23-31); Chloride 107 mmol/L (98-107); Estimated GFR 55; Glucose 112 mg/dL (83-110); Potassium 4.1 mmol/L (3.5-5.1); Sodium 138 mmol/L (136-145)
[2023-04-12] MEDS: Pilocarpine 1% Ophth Drops 15 ML BOT EA EYE SCH (08:11)
[2023-04-12] MEDS: Famotidine 20 MG TAB PO SCH (08:12)
[2023-04-12] MEDS: Cefepime 1 GM in Sodium Chloride 0.9% 100 ML IVPB SCH ×2 (08:12→20:13)
[2023-04-12] MEDS: Tamsulosin HCl 0.4 MG CAP PO SCH (08:12)
[2023-04-12] MEDS ORDERED: Mineral Oil ENEMA PR PRN (08:35)
[2023-04-12] MEDS ORDERED: Mineral Oil ENEMA PR SCH (08:45)
[2023-04-12] MEDS: Atorvastatin Calcium 40 MG TAB PO SCH (20:13)
[2023-04-12] MEDS: Zolpidem Tartrate 5 MG TAB PO PRN (21:46)
[2023-04-13 04:45] VITALS: TEMP 98.1
[2023-04-13 07:17] VITALS: BP 108/73
[2023-04-13] MEDS: Tamsulosin HCl 0.4 MG CAP PO SCH (08:08)
[2023-04-13] MEDS: Pilocarpine 1% Ophth Drops 15 ML BOT EA EYE SCH (08:08)
[2023-04-13] MEDS: Famotidine 20 MG TAB PO SCH (08:08)
[2023-04-13] MEDS: Cefepime 1 GM in Sodium Chloride 0.9% 100 ML IVPB SCH (08:08)
== END 2023-04-13 11:57 | disposition home or self-care (01) | DRG 83 ==
LOC: ERS 00:38 → CCU 02:43 → T4-A 04-11 01:31
PROVIDERS: ADMIT Student in an Organized Health Care Education/Training Program; ATTEND Family Medicine
DX: S06.5XAA Traumatic subdural hemorrhage with loss of consciousness status unknown, initial encounter (principal); E87.20 Acidosis, unspecified; T83.511A Infection and inflammatory reaction due to indwelling urethral catheter, initial encounter; N17.9 Acute kidney failure, unspecified; Z51.5 Encounter for palliative care; E11.22 Type 2 diabetes mellitus with diabetic chronic kidney disease; I12.9 Hypertensive chronic kidney disease with stage 1 through stage 4 chronic kidney disease, or unspecified chronic kidney disease; M54.50 Low back pain, unspecified; G89.29 Other chronic pain; D63.1 Anemia in chronic kidney disease; R82.81 Pyuria; Z79.899 Other long term (current) drug therapy; Z85.46 Personal history of malignant neoplasm of prostate; Z98.890 Other specified postprocedural states; E78.5 Hyperlipidemia, unspecified; N18.30 Chronic kidney disease, stage 3 unspecified; K59.00 Constipation, unspecified; N40.1 Benign prostatic hyperplasia with lower urinary tract symptoms; R33.8 Other retention of urine; Y84.6 Urinary catheterization as the cause of abnormal reaction of the patient, or of later complication, without mention of misadventure at the time of the procedure
CPT/HCPCS: 36415; 36416; 70450; 80048; 80053; 81001; 83036; 83605; 83735; 85025; 87040; 87086; 93005; 96365; J0692; J0696; J3370; J3370-JW; J3490; J7050; S0028